=== PATIENT | female | born 1940 | race Caucasian/White ===

== ENCOUNTER 2016-04-30 13:56 | Inpatient (IN) | payer OTHER ==
[~2016-04-30] VITALS: Ht 157.4 cm; Wt 78.5 kg
[~2016-04-30 13:56] MED LIST: AUGMENTIN 875 M1 TAB PO; COLACE100 MG PO; CYCLOBENZAPRINE5 MG PO; FERROUS SULFAT325 MG PO; GUAFENESIN400 MG PO; HUMALOG100 U/ML SC; HYDROCODONE BIT1 T11 PO; MIRALAX17 GM/DOSE PO; OMEPRAZOLE40 MG PO; OXYBUTYNIN5 MG PO; SIMVASTATIN40 MG PO; SWISS KRISS1 FLA PO; TOPROL XL25 MG PO; VENTOLIN 02.5 MG/3 M INH; VITAMIN D2000 IU PO
[2016-04-30 14:00] VITALS: BP 150/66
[2016-04-30 14:59] LABS: BASO % 0.3 % (0.0-1.0); EOS # 0.1 10*3/uL (0.0-0.4); EOS % 0.6 % (1.0-4.0); HEMATOCRIT 43.5 % (37.0-47.0); HEMOGLOBIN 14.6 g/dl (12.0-16.0); IG # 0.2 10*3/uL (0.0-0.1); LYMPH # 1.3 10*3/uL (1.3-4.4); LYMPH % 8.6 % (27.0-41.0); MEAN CELL VOLUME 99.1 fl (81.0-99.0); MEAN CORPUSCULAR HGB 33.3 pg (27.0-31.0); MEAN CORPUSCULAR HGB CONC 33.6 g/dl (33.0-37.0); MEAN PLATELET VOLUME 10.3 fl (9.6-12.3); MONO # 1.3 10*3/uL (0.1-1.0); MONO % 8.4 % (3.0-9.0); NEUT # 12.4 10*3/uL (2.3-7.9); NEUT % 80.7 % (47.0-73.0); PLATELET COUNT AUTOMATED 282 10*3/uL (130-400); RED BLOOD COUNT 4.39 10*6/uL (4.10-5.10); RED CELL DISTRI WIDTH 13.2 % (0-14.5); WHITE BLOOD COUNT 15.3 10*3/uL (4.8-10.8)
[2016-04-30] MEDS ORDERED: LASIX20 MG PO (15:04)
[2016-04-30] MEDS ORDERED: ASPIRIN ADULT L81 M1 PO (15:05)
[2016-04-30] MEDS ORDERED: METFORMIN500 MG PO (15:06)
[2016-04-30 15:07] LABS: PROTHROMBIN TIME 10.3 SECONDS (9.0-12.4)
[2016-04-30] MEDS ORDERED: ALLOPURINOL100 MG PO (15:07)
[2016-04-30] MEDS ORDERED: VALSARTAN-HCTZ1 EAC1 PO (15:07)
[2016-04-30 15:17] LABS: ALBUMIN 3.2 gm/dl (3.1-4.5); ALKALINE PHOSPHATASE 77 U/L (45-117); BILIRUBIN, TOTAL 0.4 mg/dl (0.2-1.0); BUN 25 mg/dl (7-24); CARBON DIOXIDE 26 mmol/L (21-32); CHLORIDE 105 mmol/L (98-107); CPK 382 U/L (26-192); EST GLOM FILT AFRICAN AMERICAN > 60 ml/min; GLUCOSE 130 mg/dL (65-99); LDH 276 U/L (84-246); POTASSIUM 3.6 mmol/L (3.5-5.1); SGOT/AST 22 IU/L (3-35); SGPT/ALT 19 U/L (12-78); SODIUM 141 mmol/L (136-145); TOTAL PROTEIN 7.9 gm/dL (6.4-8.2)
[2016-04-30 15:20] LABS: TROPONIN I < 0.015 ng/ml (<0.045)
[2016-04-30 15:52] LABS: BILIRUBIN NEGATIVE (NEGATIVE); BLOOD TRACE-INTACT (NEGATIVE); CLARITY SL CLOUDY (CLEAR); COLOR YELLOW (YELLOW); GLUCOSE NEGATIVE (NEGATIVE); KETONE NEGATIVE (NEGATIVE); LEUKO ESTERASE NEGATIVE (NEGATIVE); NITRITE NEGATIVE (NEGATIVE); PROTEIN TRACE (NEGATIVE); SPECIFIC GRAVITY >= 1.030 (1.005-1.030); UROBILINOGEN 0.2 E.U./dl (0.2-1.0)
[2016-04-30 16:02] LABS: BACTERIA TRACE; RBC 0-2 rbc/hpf (0-2); URINE REFLEX COMMENT NO (NO); WBC 0-2 wbc/hpf (0-5)
[2016-04-30 17:19] VITALS: BP 138/70
[2016-04-30 17:43] VITALS: BP 127/68
[2016-04-30 18:38] LABS: CPK 730 U/L (26-192); TROPONIN I < 0.015 ng/ml (<0.045)
[2016-04-30 18:45] VITALS: BP 143/85
[2016-04-30 18:51] VITALS: BP 143/85
[2016-04-30 20:00] VITALS: BP 149/65
[2016-05-01] VITALS: BP 149/66
[2016-05-01 00:39] LABS: CPK 867 U/L (26-192)
[2016-05-01 00:40] LABS: TROPONIN I < 0.015 ng/ml (<0.045)
[2016-05-01 05:58] LABS: CPK 852 U/L (26-192)
[2016-05-01 06:06] LABS: TROPONIN I < 0.015 ng/ml (<0.045)
[2016-05-01 06:15] LABS: ALKALINE PHOSPHATASE 62 U/L (45-117); BILIRUBIN, TOTAL 0.4 mg/dl (0.2-1.0); CHLORIDE 106 mmol/L (98-107); FREE T4 1.07 ng/dl (0.76-1.46); HDL CHOLESTEROL 53 mg/dl (40-60); POTASSIUM 3.7 mmol/L (3.5-5.1); SODIUM 143 mmol/L (136-145); TOTAL PROTEIN 6.4 gm/dL (6.4-8.2)
[2016-05-01 06:23] LABS: ALBUMIN 2.7 gm/dl (3.1-4.5); BUN 19 mg/dl (7-24); CARBON DIOXIDE 26 mmol/L (21-32); CHOLESTEROL 137 mg/dL (<200); EST GLOM FILT AFRICAN AMERICAN > 60 ml/min; GLUCOSE 110 mg/dL (65-99); LDL CHOLESTEROL 59 mg/dL (9-159); MAGNESIUM 2.1 mg/dL (1.5-2.1); PHOSPHOROUS 3.8 mg/dL (2.5-4.9); SGOT/AST 32 IU/L (3-35); SGPT/ALT 18 U/L (12-78); TRIGLYCERIDES 123 mg/dl (<150); VLDL CHOLESTEROL 25 mg/dL (6-40)
[2016-05-01 06:44] LABS: HEMOGLOBIN A1c 6.1 % (4.8-5.6)
[2016-05-01 06:48] LABS: BASO # 0.1 10*3/uL (0.0-0.1); BASO % 0.5 % (0.0-1.0); EOS # 0.2 10*3/uL (0.0-0.4); EOS % 1.6 % (1.0-4.0); HEMATOCRIT 37.6 % (37.0-47.0); IG # 0.1 10*3/uL (0.0-0.1); LYMPH # 1.8 10*3/uL (1.3-4.4); LYMPH % 19.1 % (27.0-41.0); MEAN CELL VOLUME 101.3 fl (81.0-99.0); MEAN CORPUSCULAR HGB 33.7 pg (27.0-31.0); MEAN CORPUSCULAR HGB CONC 33.2 g/dl (33.0-37.0); MEAN PLATELET VOLUME 10.2 fl (9.6-12.3); MONO % 11.2 % (3.0-9.0); NEUT # 6.2 10*3/uL (2.3-7.9); NEUT % 66.6 % (47.0-73.0); PLATELET COUNT AUTOMATED 249 10*3/uL (130-400); RED BLOOD COUNT 3.71 10*6/uL (4.10-5.10); RED CELL DISTRI WIDTH 13.2 % (0-14.5); WHITE BLOOD COUNT 9.3 10*3/uL (4.8-10.8)
[2016-05-01 06:50] LABS: HEMOGLOBIN 12.5 g/dl (12.0-16.0)
[2016-05-01 07:09] LABS: PROTHROMBIN TIME 10.4 SECONDS (9.0-12.4)
[2016-05-01 07:12] LABS: VITAMIN D, 25-HYDROXY 31.9 ng/mL (30-100)
[2016-05-01 07:13] LABS: FOLIC ACID > 24.00 ng/mL (>5.38)
[2016-05-01 08:00] VITALS: BP 120/56
[2016-05-01 12:00] VITALS: BP 120/56; BP 143/54
[2016-05-01 16:00] VITALS: BP 133/80
[2016-05-01 20:00] VITALS: BP 143/71
[2016-05-02] VITALS: BP 148/64
[2016-05-02 06:07] LABS: BASO % 0.5 % (0.0-1.0); EOS # 0.1 10*3/uL (0.0-0.4); EOS % 1.2 % (1.0-4.0); HEMATOCRIT 36.9 % (37.0-47.0); HEMOGLOBIN 12.4 g/dl (12.0-16.0); IG # 0.1 10*3/uL (0.0-0.1); LYMPH # 1.7 10*3/uL (1.3-4.4); LYMPH % 20.2 % (27.0-41.0); MEAN CELL VOLUME 101.7 fl (81.0-99.0); MEAN CORPUSCULAR HGB 34.2 pg (27.0-31.0); MEAN CORPUSCULAR HGB CONC 33.6 g/dl (33.0-37.0); MEAN PLATELET VOLUME 9.8 fl (9.6-12.3); MONO # 0.9 10*3/uL (0.1-1.0); MONO % 10.1 % (3.0-9.0); NEUT # 5.7 10*3/uL (2.3-7.9); NEUT % 67.1 % (47.0-73.0); PLATELET COUNT AUTOMATED 258 10*3/uL (130-400); RED BLOOD COUNT 3.63 10*6/uL (4.10-5.10); RED CELL DISTRI WIDTH 13.1 % (0-14.5); WHITE BLOOD COUNT 8.5 10*3/uL (4.8-10.8)
[2016-05-02 06:31] LABS: ALBUMIN 2.6 gm/dl (3.1-4.5); BUN 15 mg/dl (7-24); CARBON DIOXIDE 25 mmol/L (21-32); CHLORIDE 108 mmol/L (98-107); GLUCOSE 86 mg/dL (65-99); MAGNESIUM 2.2 mg/dL (1.5-2.1); POTASSIUM 3.7 mmol/L (3.5-5.1); SODIUM 143 mmol/L (136-145)
[2016-05-02 06:37] LABS: ALKALINE PHOSPHATASE 62 U/L (45-117); BILIRUBIN, TOTAL 0.3 mg/dl (0.2-1.0); CPK 529 U/L (26-192); EST GLOM FILT AFRICAN AMERICAN > 60 ml/min; PHOSPHOROUS 2.9 mg/dL (2.5-4.9); SGOT/AST 28 IU/L (3-35); SGPT/ALT 19 U/L (12-78); TOTAL PROTEIN 6.5 gm/dL (6.4-8.2)
[2016-05-02 08:00] VITALS: BP 150/68
[2016-05-02 12:00] VITALS: BP 140/80
[2016-05-02 16:00] VITALS: BP 128/71
[2016-05-02 20:00] VITALS: BP 144/53
[2016-05-03] VITALS: BP 151/82
[2016-05-03 06:44] LABS: BASO % 0.4 % (0.0-1.0); EOS # 0.1 10*3/uL (0.0-0.4); EOS % 1.7 % (1.0-4.0); HEMATOCRIT 35.2 % (37.0-47.0); HEMOGLOBIN 11.4 g/dl (12.0-16.0); IG # 0.2 10*3/uL (0.0-0.1); LYMPH # 1.8 10*3/uL (1.3-4.4); LYMPH % 22.7 % (27.0-41.0); MEAN CELL VOLUME 101.7 fl (81.0-99.0); MEAN CORPUSCULAR HGB 32.9 pg (27.0-31.0); MEAN CORPUSCULAR HGB CONC 32.4 g/dl (33.0-37.0); MEAN PLATELET VOLUME 9.8 fl (9.6-12.3); MONO # 0.7 10*3/uL (0.1-1.0); MONO % 9.1 % (3.0-9.0); NEUT % 64.2 % (47.0-73.0); PLATELET COUNT AUTOMATED 256 10*3/uL (130-400); RED BLOOD COUNT 3.46 10*6/uL (4.10-5.10); RED CELL DISTRI WIDTH 13.1 % (0-14.5); WHITE BLOOD COUNT 7.8 10*3/uL (4.8-10.8)
[2016-05-03 06:58] LABS: EST GLOM FILT AFRICAN AMERICAN > 60 ml/min
[2016-05-03 08:00] VITALS: BP 153/82
[2016-05-03 20:00] VITALS: BP 152/74
[2016-05-04] VITALS: BP 158/70
[2016-05-04 08:28] VITALS: BP 162/78
[2016-05-04 12:00] VITALS: BP 141/74
== END 2016-05-04 14:15 | disposition other institution (70) | DRG 682 ==
LOC: ED 13:56 → EDHOLD 16:37 → 5E 16:37
PROVIDERS: Internal Medicine; Physician Assistant; Student in an Organized Health Care Education/Training Program
DX: N17.0 Acute kidney failure with tubular necrosis (principal); J96.01 Acute respiratory failure with hypoxia; J44.1 Chronic obstructive pulmonary disease with (acute) exacerbation; M62.82 Rhabdomyolysis; K86.2 Cyst of pancreas; E11.65 Type 2 diabetes mellitus with hyperglycemia; M19.90 Unspecified osteoarthritis, unspecified site; J45.909 Unspecified asthma, uncomplicated; M79.7 Fibromyalgia; G47.33 Obstructive sleep apnea (adult) (pediatric); M81.0 Age-related osteoporosis without current pathological fracture; D72.829 Elevated white blood cell count, unspecified; M54.5 Low back pain; W18.11XA Fall from or off toilet without subsequent striking against object, initial encounter; R27.0 Ataxia, unspecified; Z87.81 Personal history of (healed) traumatic fracture; Z90.710 Acquired absence of both cervix and uterus; Z83.6 Family history of other diseases of the respiratory system; Z79.82 Long term (current) use of aspirin; Z79.84 Long term (current) use of oral hypoglycemic drugs; Z79.1 Long term (current) use of non-steroidal anti-inflammatories (NSAID); Z79.899 Other long term (current) drug therapy; Y93.89 Activity, other specified; Y92.89 Other specified places as the place of occurrence of the external cause; Y99.8 Other external cause status

== ENCOUNTER 2017-12-03 20:09 | Inpatient (IN) | payer OTHER ==
[~2017-12-03] VITALS: Ht 157.5 cm; Wt 53.6 kg
--- NOTE | ~2017-12-03 | EKG ---
[place], [place] ELECTROCARDIOGRAM REPORT NAME: JOSELUIS JIMENEZ UNIT #: [id number] ROOM: 521 DOCTOR: BARBARA DRAFT REPORT BIRTHDATE: [birth year] [facility] Test Date: 2017-12-03 Test Time: 21:21:28 Pat Name: JOSELUIS JIMENEZ Department: Room: 521 Gender: F Obstetrics Gyn: SS RESP : 1940 Requested By: KETAN WAGONER Order Number: [id number] Reading MD: Patrizia Mccollum MD Measurements Intervals [place] Rate: 55 P: 17 AR: 143 QRS: -9 QRSD: 72 T: 24 QT: 462 QTc: 442 Interpretive Statements Sinus rhythm Atrial premature complex Abnormal R-wave progression, early transition Probable LVH with secondary repol abnrm Electronically Signed On 12-06-2017 12:07:43 PDT by Patrizia Mccollum MD CM:EKGRPT:ELECTROCARDIOGRAM REPORT 20 1207 KETAN WAGONER MD EPIPHANY DRAFT REPORT KETAN WAGONER MD
[~2017-12-03 20:09] MED LIST changes: +ALLOPURINOL100 MG PO; +ASPIRIN ADULT L81 M1 PO; +LASIX20 MG PO; +METFORMIN500 MG PO; +VALSARTAN-HCTZ1 EAC1 PO
[2017-12-03 20:13] VITALS: BP 126/60
[2017-12-03] MEDS ORDERED: LOSARTAN POTASS25 M1 PO (20:31)
[2017-12-03 21:09] LABS: BASO # 0.1 10*3/uL (0.0-0.1); BASO % 0.7 % (0.0-1.0); EOS # 0.3 10*3/uL (0.0-0.4); EOS % 2.2 % (1.0-4.0); HEMATOCRIT 37.5 % (37.0-47.0); HEMOGLOBIN 12.6 g/dl (12.0-16.0); LYMPH # 4.3 10*3/uL (1.3-4.4); LYMPH % 36.7 % (27.0-41.0); MEAN CELL VOLUME 103.9 fl (81.0-99.0); MEAN CORPUSCULAR HGB 34.9 pg (27.0-31.0); MEAN CORPUSCULAR HGB CONC 33.6 g/dl (33.0-37.0); MEAN PLATELET VOLUME 10.4 fl (9.6-12.3); MONO # 1.1 10*3/uL (0.1-1.0); MONO % 9.1 % (3.0-9.0); NEUT # 5.9 10*3/uL (2.3-7.9); NEUT % 50.4 % (47.0-73.0); NUCLEATED RED BLOOD CELL 0.2 % (0.0-0.0); PLATELET COUNT AUTOMATED 258 10*3/uL (130-400); RED BLOOD COUNT 3.61 10*6/uL (4.10-5.10); RED CELL DISTRI WIDTH 13.8 % (0-14.5); WHITE BLOOD COUNT 11.7 10*3/uL (4.8-10.8)
[2017-12-03 21:22] LABS: BILIRUBIN NEGATIVE (NEGATIVE); BLOOD NEGATIVE (NEGATIVE); CLARITY CLEAR (CLEAR); COLOR YELLOW (YELLOW); GLUCOSE NEGATIVE (NEGATIVE); KETONE TRACE (NEGATIVE); LEUKO ESTERASE NEGATIVE (NEGATIVE); NITRITE NEGATIVE (NEGATIVE); PH 5.5 (5.0-9.0); UROBILINOGEN 0.2 E.U./dl (0.2-1.0)
[2017-12-03 21:29] LABS: ALBUMIN 3.2 gm/dl (3.1-4.5); CREATININE 2.43 mg/dL (0.55-1.02); POTASSIUM 3.5 mmol/L (3.5-5.1); TOTAL PROTEIN 7.4 gm/dL (6.4-8.2)
[2017-12-03 21:30] LABS: TROPONIN I 0.022 ng/ml (<0.045)
[2017-12-03 21:34] LABS: RBC 0-2 rbc/hpf (0-2); WBC 0-2 wbc/hpf (0-5)
[2017-12-03 21:36] LABS: THYROID STIM HORMONE (HS) 8.57 uIU/ml (0.358-4.75)
[2017-12-03 23:04] VITALS: BP 138/60
[2017-12-03 23:31] VITALS: BP 142/55
[2017-12-04] VITALS (7 sets, daily range): BP systolic 100–147; BP diastolic 46–68
[2017-12-04 06:25] LABS: BASO # 0.1 10*3/uL (0.0-0.1); BASO % 0.8 % (0.0-1.0); EOS # 0.2 10*3/uL (0.0-0.4); EOS % 1.7 % (1.0-4.0); HEMATOCRIT 33.9 % (37.0-47.0); HEMOGLOBIN 10.9 g/dl (12.0-16.0); LYMPH # 2.7 10*3/uL (1.3-4.4); LYMPH % 29.4 % (27.0-41.0); MEAN CELL VOLUME 105.6 fl (81.0-99.0); MEAN CORPUSCULAR HGB CONC 32.2 g/dl (33.0-37.0); MEAN PLATELET VOLUME 10.7 fl (9.6-12.3); MONO # 0.9 10*3/uL (0.1-1.0); NEUT # 5.3 10*3/uL (2.3-7.9); NEUT % 56.9 % (47.0-73.0); PLATELET COUNT AUTOMATED 205 10*3/uL (130-400); RED BLOOD COUNT 3.21 10*6/uL (4.10-5.10); RED CELL DISTRI WIDTH 13.9 % (0-14.5); WHITE BLOOD COUNT 9.3 10*3/uL (4.8-10.8)
[2017-12-04 06:26] LABS: CREATININE 2.19 mg/dL (0.55-1.02); FREE T4 0.98 ng/dl (0.76-1.46); PHOSPHOROUS 4.5 mg/dL (2.5-4.9); POTASSIUM 3.2 mmol/L (3.5-5.1)
[2017-12-04 06:45] LABS: ACT PARTIAL THROMBO TIME 22.7 SECONDS (20.8-31.5)
[2017-12-04 09:22] LABS: VITAMIN D, 25-HYDROXY 46.6 ng/mL (30-100)
[2017-12-04] MEDS ORDERED: HYZAAR 50-12.51 EACH PO (13:44)
[2017-12-05] VITALS: BP 145/45
[2017-12-05 06:52] LABS: BASO # 0.1 10*3/uL (0.0-0.1); BASO % 0.6 % (0.0-1.0); EOS # 0.2 10*3/uL (0.0-0.4); EOS % 1.9 % (1.0-4.0); HEMATOCRIT 34.5 % (37.0-47.0); HEMOGLOBIN 11.1 g/dl (12.0-16.0); LYMPH # 2.2 10*3/uL (1.3-4.4); LYMPH % 27.9 % (27.0-41.0); MEAN CELL VOLUME 105.8 fl (81.0-99.0); MEAN CORPUSCULAR HGB CONC 32.2 g/dl (33.0-37.0); MEAN PLATELET VOLUME 10.6 fl (9.6-12.3); MONO # 0.7 10*3/uL (0.1-1.0); MONO % 8.6 % (3.0-9.0); NEUT # 4.8 10*3/uL (2.3-7.9); NEUT % 59.4 % (47.0-73.0); PLATELET COUNT AUTOMATED 220 10*3/uL (130-400); RED BLOOD COUNT 3.26 10*6/uL (4.10-5.10); RED CELL DISTRI WIDTH 13.8 % (0-14.5)
[2017-12-05 07:12] LABS: CREATININE 1.32 mg/dL (0.55-1.02); POTASSIUM 4.1 mmol/L (3.5-5.1)
[2017-12-05 08:00] VITALS: BP 126/78
[2017-12-05 12:00] VITALS: BP 125/51
[2017-12-05 16:00] VITALS: BP 155/45
[2017-12-05 20:00] VITALS: BP 147/52
[2017-12-06] VITALS: BP 143/67
[2017-12-06 06:28] LABS: BASO % 0.4 % (0.0-1.0); EOS # 0.2 10*3/uL (0.0-0.4); EOS % 1.7 % (1.0-4.0); HEMATOCRIT 31.5 % (37.0-47.0); HEMOGLOBIN 10.2 g/dl (12.0-16.0); LYMPH # 2.5 10*3/uL (1.3-4.4); LYMPH % 27.8 % (27.0-41.0); MEAN CELL VOLUME 105.7 fl (81.0-99.0); MEAN CORPUSCULAR HGB 34.2 pg (27.0-31.0); MEAN CORPUSCULAR HGB CONC 32.4 g/dl (33.0-37.0); MEAN PLATELET VOLUME 10.3 fl (9.6-12.3); MONO # 0.8 10*3/uL (0.1-1.0); MONO % 8.7 % (3.0-9.0); NEUT # 5.3 10*3/uL (2.3-7.9); NEUT % 59.3 % (47.0-73.0); PLATELET COUNT AUTOMATED 198 10*3/uL (130-400); RED BLOOD COUNT 2.98 10*6/uL (4.10-5.10)
[2017-12-06 06:43] LABS: BUN 22 mg/dl (7-24); CHLORIDE 115 mmol/L (98-107); CREATININE 1.06 mg/dL (0.55-1.02); SODIUM 146 mmol/L (136-145)
[2017-12-06 12:00] VITALS: BP 158/75
[2017-12-06 16:00] VITALS: BP 145/70
[2017-12-06 20:00] VITALS: BP 152/61
[2017-12-07] VITALS: BP 140/70
[2017-12-07 06:35] LABS: HEMATOCRIT 33.3 % (37.0-47.0); HEMOGLOBIN 10.8 g/dl (12.0-16.0); MEAN CELL VOLUME 105.7 fl (81.0-99.0); MEAN CORPUSCULAR HGB 34.3 pg (27.0-31.0); MEAN CORPUSCULAR HGB CONC 32.4 g/dl (33.0-37.0); MEAN PLATELET VOLUME 10.9 fl (9.6-12.3); PLATELET COUNT AUTOMATED 213 10*3/uL (130-400); RED BLOOD COUNT 3.15 10*6/uL (4.10-5.10); RED CELL DISTRI WIDTH 14.2 % (0-14.5); WHITE BLOOD COUNT 9.6 10*3/uL (4.8-10.8)
[2017-12-07 07:05] LABS: CREATININE 1.16 mg/dL (0.55-1.02)
[2017-12-07 07:23] LABS: BASOPHILS 3 % (0-1); PLATELET SUFFICIENCY NORMAL (NORMAL); POLYCHROMASIA SLIGHT; TOTAL CELLS COUNTED 100 #CELLS
[2017-12-07 08:00] VITALS: BP 155/90
[2017-12-07 12:00] VITALS: BP 178/50
[2017-12-07 16:00] VITALS: BP 159/88
[2017-12-07 20:00] VITALS: BP 145/53
[2017-12-08] VITALS: BP 169/75
[2017-12-08 06:26] LABS: HEMATOCRIT 35.5 % (37.0-47.0); HEMOGLOBIN 11.3 g/dl (12.0-16.0); MEAN CELL VOLUME 108.2 fl (81.0-99.0); MEAN CORPUSCULAR HGB 34.5 pg (27.0-31.0); MEAN CORPUSCULAR HGB CONC 31.8 g/dl (33.0-37.0); MEAN PLATELET VOLUME 10.7 fl (9.6-12.3); NUCLEATED RED BLOOD CELL 0.3 % (0.0-0.0); PLATELET COUNT AUTOMATED 222 10*3/uL (130-400); RED BLOOD COUNT 3.28 10*6/uL (4.10-5.10); RED CELL DISTRI WIDTH 14.2 % (0-14.5); WHITE BLOOD COUNT 10.8 10*3/uL (4.8-10.8)
[2017-12-08 06:56] LABS: CREATININE 1.13 mg/dL (0.55-1.02); POTASSIUM 4.2 mmol/L (3.5-5.1)
[2017-12-08 07:13] LABS: ATYPICAL LYMPHS 2 % (0-0); BASOPHILS 1 % (0-1); PLATELET SUFFICIENCY NORMAL (NORMAL); TOTAL CELLS COUNTED 100 #CELLS
[2017-12-08 07:14] LABS: TOXIC GRANULATION SLIGHT
[2017-12-08 08:00] VITALS: BP 149/58
[2017-12-08 12:00] VITALS: BP 142/53
[2017-12-08 16:00] VITALS: BP 158/62
[2017-12-08 20:00] VITALS: BP 159/60
[2017-12-09] VITALS: BP 155/63
[2017-12-09 08:00] VITALS: BP 156/59
== END 2017-12-09 15:50 | disposition other institution (70) | DRG 682 ==
LOC: ED 20:09 → 5E 12-04 00:25 → EDHOLD 12-04 00:25 → 5E 12-04 00:42
PROVIDERS: Emergency Medicine Emergency Medical Services; Internal Medicine; Internal Medicine Nephrology
DX: N17.0 Acute kidney failure with tubular necrosis (principal); G93.41 Metabolic encephalopathy; E87.2 Acidosis; E44.0 Moderate protein-calorie malnutrition; E83.41 Hypermagnesemia; N18.3 Chronic kidney disease, stage 3 (moderate); E87.6 Hypokalemia; R55 Syncope and collapse; R53.1 Weakness; D75.89 Other specified diseases of blood and blood-forming organs; E66.09 Other obesity due to excess calories; M19.90 Unspecified osteoarthritis, unspecified site; M81.0 Age-related osteoporosis without current pathological fracture; I34.0 Nonrheumatic mitral (valve) insufficiency; J45.909 Unspecified asthma, uncomplicated; G47.33 Obstructive sleep apnea (adult) (pediatric); M79.7 Fibromyalgia; E11.65 Type 2 diabetes mellitus with hyperglycemia; I12.9 Hypertensive chronic kidney disease with stage 1 through stage 4 chronic kidney disease, or unspecified chronic kidney disease; E11.22 Type 2 diabetes mellitus with diabetic chronic kidney disease; W18.39XA Other fall on same level, initial encounter; Y93.89 Activity, other specified; Y92.89 Other specified places as the place of occurrence of the external cause; Y99.8 Other external cause status; Z91.81 History of falling; Z90.710 Acquired absence of both cervix and uterus; Z82.5 Family history of asthma and other chronic lower respiratory diseases; Z79.82 Long term (current) use of aspirin; Z79.899 Other long term (current) drug therapy; Z68.31 Body mass index [BMI] 31.0-31.9, adult

== ENCOUNTER 2018-01-09 02:19 | Emergency (ER) | payer OTHER ==
[~2018-01-09] VITALS: Ht 167.6 cm; Wt 81.6 kg
--- NOTE | ~2018-01-09 | EKG ---
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
[~2018-01-09 02:19] MED LIST changes: +HYZAAR 50-12.51 EACH PO; +LOSARTAN POTASS25 M1 PO
[2018-01-09 02:20] VITALS: BP 110/66
[2018-01-09 02:48] LABS: BASO # 0.1 10*3/uL (0.0-0.1); BASO % 0.6 % (0.0-1.0); EOS % 0.4 % (1.0-4.0); HEMATOCRIT 34.9 % (37.0-47.0); HEMOGLOBIN 11.9 g/dl (12.0-16.0); LYMPH # 3.2 10*3/uL (1.3-4.4); LYMPH % 28.3 % (27.0-41.0); MEAN CELL VOLUME 103.6 fl (81.0-99.0); MEAN CORPUSCULAR HGB 35.3 pg (27.0-31.0); MEAN CORPUSCULAR HGB CONC 34.1 g/dl (33.0-37.0); MEAN PLATELET VOLUME 10.3 fl (9.6-12.3); MONO # 1.2 10*3/uL (0.1-1.0); MONO % 10.4 % (3.0-9.0); NEUT # 6.6 10*3/uL (2.3-7.9); NEUT % 58.7 % (47.0-73.0); PLATELET COUNT AUTOMATED 259 10*3/uL (130-400); RED BLOOD COUNT 3.37 10*6/uL (4.10-5.10); RED CELL DISTRI WIDTH 14.3 % (0-14.5); WHITE BLOOD COUNT 11.3 10*3/uL (4.8-10.8)
[2018-01-09 03:07] LABS: ALBUMIN 3.3 gm/dl (3.1-4.5); CREATININE 2.88 mg/dL (0.55-1.02); POTASSIUM 3.7 mmol/L (3.5-5.1); TOTAL PROTEIN 7.2 gm/dL (6.4-8.2)
[2018-01-09 04:03] VITALS: BP 115/70
[2018-01-09] MEDS ORDERED: GLUCOTROL10 MG PO (04:31)
[2018-01-09] MEDS ORDERED: ELIQUIS5 M1 PO (04:32)
[2018-01-09] MEDS ORDERED: PROPAFENONE HC150 MG PO (04:32)
[2018-01-09] MEDS ORDERED: TOPROL XL25 MG PO (04:33)
[2018-01-09] MEDS ORDERED: LIPITOR40 MG PO (04:33)
== END 2018-01-09 05:13 | disposition home or self-care (01) ==
LOC: ED 02:19 → EDHOLD 04:03 → ED 04:03
PROVIDERS: Student in an Organized Health Care Education/Training Program
DX: K92.1 Melena (principal); R53.1 Weakness; R14.0 Abdominal distension (gaseous); R26.2 Difficulty in walking, not elsewhere classified; I12.9 Hypertensive chronic kidney disease with stage 1 through stage 4 chronic kidney disease, or unspecified chronic kidney disease; E11.22 Type 2 diabetes mellitus with diabetic chronic kidney disease; N18.3 Chronic kidney disease, stage 3 (moderate); E66.9 Obesity, unspecified; M81.0 Age-related osteoporosis without current pathological fracture; M19.90 Unspecified osteoarthritis, unspecified site; J45.909 Unspecified asthma, uncomplicated

== ENCOUNTER 2018-03-14 14:03 | Inpatient (IN) | payer OTHER ==
[2018-03-14] VITALS (10 sets, daily range): BP systolic 100–208; BP diastolic 48–176
[~2018-03-14] VITALS: Ht 160 cm; Wt 75.0 kg
--- NOTE | ~2018-03-14 | PR ---
[place], [place] PROGRESS NOTE [id number] UNIT #: [id number] ROOM: 422 DOCTOR: RON SANCHEZ MD BIRTHDATE: [birth year] DOS: 03/21/2018 CARDIOLOGY PROGRESS NOTE SUBJECTIVE: The patient was seen at her bedside today for followup of her atrial fibrillation with rapid ventricular response. This is a newly diagnosed problem. She is currently on metoprolol, digoxin, and diltiazem, and her rate is improving, although it is still not ideally controlled. The patient appears quite confused and is moaning in bed. She states that nothing is hurting and that she is hungry. OBJECTIVE: VITAL SIGNS: Today, her heart rate is about 100 and regular, blood pressure is 142/78. She is afebrile. NECK: Supple. She has no jugular distention. CHEST: Has decreased breath sounds at the bases. HEART: Has an irregularly irregular rhythm. EXTREMITIES: Showed no edema. IMPRESSION: 1. Newly documented atrial fibrillation with rapid ventricular response. 2. Essential hypertension. 3. Type 2 diabetes mellitus. 4. Obesity. 5. Obstructive sleep apnea. 6. CHADS2-VASc score of 5, indicating high risk for cardioembolic events if the patient is not anticoagulated. 7. Encephalopathy, possibly metabolic in origin, possibly due to the hospital induced psychosis. PLAN: We will increase oral diltiazem and continue to observe her heart rate. I thank the hospitalist physicians for asking our advice regarding her care. [place], [place] PROGRESS NOTE NAME: JOSELUIS JIMENEZ UNIT #: [id number] ROOM: 422 DOCTOR: RON SANCHEZ MD BIRTHDATE: [birth year] RON SANCHEZ MD CM:PNTRANS [phone] RON SANCHEZ MD 03/24/18 1102 interface
--- NOTE | ~2018-03-14 | PR ---
[place], [place] PROGRESS NOTE NAME: JAMMIE JIMENEZA Radames UNIT #: [id number] ROOM: 412 DOCTOR: RON SANCHEZ MD BIRTHDATE: [birth year] DOS: 03/19/2018 CARDIOLOGY PROGRESS NOTE SUBJECTIVE: The patient was seen at her bedside today 03/19/2018. She is lying flat and breathing easily. We are seeing her today for followup of her newly documented atrial fibrillation. Her heart rate remains fairly rapid despite metoprolol and digoxin. She is tolerating anticoagulation. PHYSICAL EXAMINATION: VITAL SIGNS: Her pulse is 110 and irregularly irregular, blood pressure is 147/93. She is afebrile. NECK: Supple. She has no jugular distention. Carotids are full. LUNGS: Respirations are unlabored. Chest is clear. HEART: Has an irregularly irregular rhythm. ABDOMEN: Benign. EXTREMITIES: Showed no edema. LABORATORY DATA: Hemoglobin is 13.2, white count 9400, platelet count 266,000. Sodium 145, potassium 4.3, BUN 23, creatinine 1.22. Her most recent digoxin level was 1.15 two days ago. IMPRESSION: 1. Newly documented atrial fibrillation with rapid ventricular response. 2. Essential hypertension. 3. Type 2 diabetes mellitus. 4. Obesity. 5. Sedentary lifestyle. 6. Obstructive sleep apnea. 7. CHADS-VASc score of 5, indicating a high risk of cardioembolic events if the patient is not anticoagulated. PLAN: I will add oral diltiazem to her regimen. We will continue to anticoagulate her. We will continue to follow her with her primary physician. I thank the hospitalist doctors for asking our advice regarding her care. [place], [place] PROGRESS NOTE NAME: WHITNEYMERLINJOSELUIS UNIT #: [id number] ROOM: 412 DOCTOR: RON SANCHEZ MD BIRTHDATE: [birth year] RON SANCHEZ MD CM:PNTRANS [phone] RON SANCHEZ MD 03/21/18 1049 interface
--- NOTE | ~2018-03-14 | PR ---
[place], [place] PROGRESS NOTE NAME: JOSELUIS JIMENEZ UNIT #: [id number] ROOM: 422 DOCTOR: ROSEANNE CANCHOLA MD BIRTHDATE: [birth year] DOS: 03/23/2018 CARDIOLOGY FOLLOWUP VISIT NOTE REASON FOR VISIT: Atrial fibrillation. SUBJECTIVE: The patient is sleeping, arousable, but mostly noncommunicative and not answering the questions, but no acute distress. REVIEW OF SYSTEMS: Review of the 8 systems negative due to the patient not responding to any questions. PHYSICAL EXAMINATION: RHYTHM STRIPS: The patient is in atrial fibrillation with occasional rates in to 100-110 range. VITAL SIGNS: Blood pressure 140/66, pulse 75, respiratory rate is 20. GENERAL: The patient was sleeping, arousable, no acute distress. NECK: Supple, no distended neck veins, no carotid bruit. CHEST: Symmetrical, nontender. LUNGS: Few scattered rhonchi, but fair air entry bilaterally. HEART: Irregularly irregular. Grade 1/6 systolic murmur. ABDOMEN: Obese, nontender. Bowel sounds normal. EXTREMITIES: Showed trace edema. Distal pulses palpable. SKIN: Warm and dry. No cyanosis, no clubbing. RECTAL: Deferred. GENITOURINARY: Deferred. MEDICATIONS, ALLERGIES AND LABS: Reviewed. IMPRESSION: 1. Atrial fibrillation. 2. Hypertension. 3. Diabetes type 2. 4. Chronic kidney disease. 5. Anemia. 6. Obstructive sleep apnea. RECOMMENDATIONS: 1. Her blood pressure and heart rate are stable. 2. She will continue her Cardizem and metoprolol. 3. If required, add low dose digoxin 0.125 every other day for rate control. 4. Monitor her blood pressure, heart rates, renal function and hemoglobin. 5. No family at bedside at the time of examination. [place], [place] PROGRESS NOTE NAME: TONYJOSELUIS [place]rum UNIT #: [id number] ROOM: 422 DOCTOR: ROSEANNE CANCHOLA MD BIRTHDATE: [birth year] ROSEANNE CANCHOLA MD CM:PNTRANS [phone] ROSEANNE CANCHOLA MD 03/24/18 0855 interface
--- NOTE | ~2018-03-14 | EKG ---
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
--- NOTE | ~2018-03-14 | PR ---
[place], [place] PROGRESS NOTE NAME: JOSELUIS JIMENEZ UNIT #: [id number] ROOM: [facility] DOCTOR: RON SANCHEZ MD BIRTHDATE: [birth year] DOS: 03/15/2018 CARDIOLOGY PROGRESS NOTE SUBJECTIVE: The patient was seen at her bedside in the intensive care unit today 03/15/2018 for followup of her newly documented atrial fibrillation with rapid ventricular response. She was placed on metoprolol and oral digoxin this morning. Her rate has slowed and she was weaned off of diltiazem successfully. She feels well currently, but she does complain of total body aches, which she has had in the past from her fibromyalgia. PHYSICAL EXAMINATION: VITAL SIGNS: Today, her pulse is 87 and irregularly irregular. Blood pressure is 130/69. She is afebrile. NECK: Supple. She has no jugular distention. Carotids are full. I heard no bruits. She had no neck or supraclavicular masses. LUNGS: Respirations were unlabored. Her chest has decreased breath sounds at the bases, but I did not hear any wheezes or rales. HEART: Had an irregularly irregular rhythm without murmurs or gallops. ABDOMEN: Obese, but otherwise benign. EXTREMITIES: Showed no edema. IMPRESSION: 1. Newly documented atrial fibrillation with rapid ventricular response. 2. History of essential hypertension. 3. Type 2 diabetes mellitus. 4. Obesity. 5. Relatively sedentary. PLAN: We are awaiting the repeat echocardiogram, which will be done within the next 48 hours. I agree with the plans to start her on oral anticoagulation. The most recent [place] [employer] guidelines suggest that warfarin is now a second line drug for patients with nonvalvular atrial fibrillation and therefore, I would suggest that she be placed on apixaban 5 mg b.i.d. I have discussed this with the hospitalist physicians and they will probably make that change. We will continue to monitor her in the intensive care unit and I thank the hospitalist for asking our advice regarding her care. [place], [place] PROGRESS NOTE NAME: JOSELUIS JIMENEZ UNIT #: [id number] ROOM: [facility] DOCTOR: RON SANCHEZ MD BIRTHDATE: [birth year] RON SANCHEZ MD CM:PNTRANS [phone] RON SANCHEZ MD 03/16/18 0828 interface
--- NOTE | ~2018-03-14 | PR ---
[place], [place] PROGRESS NOTE NAME: JOSELUIS JIMENEZ UNIT #: [id number] ROOM: 422 DOCTOR: ROSEANNE CANCHOLA MD BIRTHDATE: [birth year] DOS: 03/24/2018 CARDIOLOGY PROGRESS NOTE REASON FOR VISIT: Atrial fibrillation and hypertension. SUBJECTIVE: The patient is alert, but patient not responding to questions, mostly noncommunicative, but no acute distress. Review of the 8 systems negative due to patient's mental status. By rhythm strip, patient in atrial fibrillation with rates around 95-105. OBJECTIVE: VITAL SIGNS: Blood pressure 150/82, pulse 70, respirations 17. Weight 74.9 kilos. GENERAL: The patient is alert, comfortable, in no acute distress. HEENT: Pupils are unable to assess since patient not opening her eyes. NECK: Supple. No distended neck veins. No carotid bruit. CHEST: Nontender to pressure. LUNGS: Few scattered rhonchi, but good air entry bilaterally. HEART: Irregularly irregular, grade 1/6 systolic murmur. ABDOMEN: Obese, nontender. Bowel sounds normal. EXTREMITIES: Showed trace edema. Distal pulses palpable. SKIN: Warm and dry. No cyanosis, no clubbing. RECTAL: Deferred. GENITOURINARY: Deferred. NEUROLOGIC: Unable to assess due to patient's overall clinical condition. MEDICATIONS AND LABORATORIES: Reviewed. IMPRESSION: 1. Atrial fibrillation. 2. Hypertension. 3. Diabetes type 2. 4. Chronic obstructive pulmonary disease. 5. Anemia. RECOMMENDATION: Continue current medications including her metoprolol and diltiazem as well as on Xarelto. There is no family at bedside. Cardiology will see as needed and patient can be discharged home. If patient develops significant tachycardia, then add digoxin 0.125 mg every other day due to chronic kidney disease. [place], [place] PROGRESS NOTE NAME: JOSELUIS JIMENEZ UNIT #: [id number] ROOM: 422 DOCTOR: ROSEANNE CANCHOLA MD BIRTHDATE: [birth year] ROSEANNE CANCHOLA MD CM:SHEILATRANS [phone] ROSEANNE CANCHOLA MD 03/24/188 interface
--- NOTE | ~2018-03-14 | PR ---
[place], [place] PROGRESS NOTE NAME: JOSELUIS JIMENEZ UNIT #: [id number] ROOM: 422 DOCTOR: ROSEANNE CANCHOLA MD BIRTHDATE: [birth year] DOS: 03/22/2018 REASON FOR VISIT: Atrial fibrillation and hypertension. HISTORY OF PRESENT ILLNESS: The patient is feeling better. Denies any chest pain or shortness of breath. No palpitation, no dizziness. The patient is wearing BiPAP. REVIEW OF SYSTEMS: As per the review of the 8 systems negative except as mentioned above. PHYSICAL EXAMINATION: VITAL SIGNS: Blood pressure 136/80, pulse 72, respiration rate 20, weight 74.9 kilos. RHYTHM STRIPS: The patient in atrial fibrillation with occasional rapid ventricular rate. GENERAL: The patient is alert and oriented, no acute distress. The patient is on BiPAP. HEENT: Pupils are round and equal. No jaundice. NECK: Supple, no distended neck veins, no carotid bruit. CHEST: Symmetrical, nontender. LUNGS: Few scattered rhonchi, but good air entry bilaterally. HEART: Irregularly irregular and grade 1/6 systolic murmur. ABDOMEN: Benign, nontender. Bowel sounds normal, obese. EXTREMITIES: Showed trace edema. Distal pulses palpable. SKIN: Warm and dry. No cyanosis, no clubbing. RECTAL: Deferred. GENITOURINARY: Deferred. MEDICATIONS AND LABORATORIES: Reviewed. IMPRESSION: 1. Atrial fibrillation, paroxysmal. 2. Hypertension. 3. Obstructive sleep apnea. 4. Diabetes type 2. 5. Chronic kidney disease. 6. Non-morbid obesity. 7. Infrarenal abdominal aortic aneurysm without rupture. RECOMMENDATIONS: Continue her current medications and continue digoxin, Cardizem, and beta-robert, continue Xarelto for anticoagulation. If the heart rate or blood pressure are high, then increase her medications. There is no family at bedside at the time of examination. Monitor heart rates, blood pressures, renal function and hemoglobin. [place], [place] PROGRESS NOTE NAME: TONYJOSELUIS Radames UNIT #: [id number] ROOM: 422 DOCTOR: ROESANNE CANCHOLA MD BIRTHDATE: [birth year] ROSEANNE CANCHOLA MD CM:PORTILLO [phone] ROSEANNE CANCHOLA MD 05/06/18 0652 interface
--- NOTE | ~2018-03-14 | EKG ---
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: Kina Ley : 1940 Requested By: MOHAMUD CHAKRABORTY Order Number: [id number] Reading MD: Hector Frederick MD Measurements Intervals [place] Rate: 167 P: [place]: QRS: 16 QRSD: 66 T: 0 QT: 293 QTc: 489 Interpretive Statements Atrial fibrillation with rapid V-rate Minimal ST depression, inferior leads Borderline T abnormalities, inferior leads Compared to ECG 01/09/2018 02:45:13 ST (T wave) deviation now present Sinus rhythm no longer present T-wave abnormality still present Electronically Signed On 03-15-2018 10:28:35 PST by Hector Frederick MD CM:EKGRPT:ELECTROCARDIOGRAM REPORT [id number] MOHAMUD JIMENEZ DRAFT REPORT MOHAMUD CHAKRABORTY M.D.
--- NOTE | ~2018-03-14 | CON ---
[place], [place] REPORT OF CONSULTATION [id number] UN[facility] #: [id number] ROOM: [facility] DOCTOR: RON SANCHEZ MD BIRTHDATE: [birth year] DOS: 03/14/2018 CARDIOLOGY CONSULTATION REASON FOR CONSULTATION: Atrial fibrillation with rapid ventricular response. HISTORY OF PRESENT ILLNESS: The patient is a 77-year-old woman who has no previously documented heart disease even though she does have a history of hypertension, obesity and diabetes. She also has sleep apnea. Reportedly, she was treated for urinary tract infection a few weeks ago. She was otherwise in her normal state of health until the last week when she began noticing that her heart was fluttering. She was seen today by visiting nurses who noted that her pulse was very fast. She was therefore brought to the Emergency Room, where she was found to be in atrial fibrillation with a very rapid ventricular response. Initially, she was hypertensive. She was started on a diltiazem drip and bolused with diltiazem twice. When this was not effective in lowering her heart rate, she was also given digoxin IV. She was then transferred to the intensive care unit for further management. The patient denies any fevers or chills. She does feel somewhat short of breath. She denies cough or hemoptysis. She has not had nausea or vomiting. PAST MEDICAL HISTORY: Includes: 1. Type 2 diabetes mellitus. 2. Morbid obesity. 3. Moderate protein-calorie malnutrition. 4. Essential hypertension. 5. Asthma. 6. Obstructive sleep apnea. 7. Chronic kidney disease. 8. Degenerative joint disease. 9. Atrial fibrillation documented 03/14/2018. 10. [id number] score of 5 consistent with a high risk for cardioembolic events if the patient is not anticoagulated. MEDICATIONS PRIOR TO ADMISSION: Allopurinol 100 mg b.i.d., atorvastatin 20 mg daily, furosemide 20 mg daily, metformin 500 mg b.i.d., metoprolol 25 mg q. 12 hours and oxybutynin 5 mg b.i.d. ALLERGIES: The patient lists no known drug allergies. FAMILY HISTORY: Unknown as the patient was adopted. REVIEW OF SYSTEMS: The patient denies diplopia or loss of vision. She does complain of fatigue and dyspnea. She is generally weak. She denies nausea or vomiting. She denies fevers, chills, sweats or recent weight change. She does admit to palpitations. She does feel weak. She denies hemoptysis or hematemesis. She states her appetite is generally good. She denies any history of blood clots. She states that she does not get around very well and is mostly sedentary. She denies change in bowel or bladder habits and denies blood in her [place], [place] REPORT OF CONSULTATION NAME: JOSELUIS JIMENEZ UNIT #: [id number] ROOM: [facility] DOCTOR: RON SANCHEZ MD BIRTHDATE: [birth year] stools or urine. She has noticed some aching in her legs and some pedal edema. Remainder of the review of systems is negative except as noted above. SOCIAL HISTORY: The patient is . She does not drink alcohol or smokes cigarettes. PHYSICAL EXAMINATION: GENERAL: The patient is an overweight white female who is awake, alert and oriented. VITAL SIGNS: Pulse is 150 and irregularly irregular. Blood pressure is 128/92. She is afebrile. She weighs 75.0 kg and has a body mass index of 29.3. HEENT: Normocephalic and atraumatic. Extraocular muscles are intact. Sclerae are clear. Pupils equal, round and react to light. The oral mucosa is moist. Tongue is midline. NECK: Supple. She has no jugular distention. Carotids are full. I heard no bruits. She had no neck or supraclavicular masses and no thyromegaly. LUNGS: Respirations are unlabored. Her chest has decreased breath sounds at the bases. She has no wheezes or rales. She has no presacral edema or chest wall tenderness. CARDIOVASCULAR: Her heart has an irregularly irregular rhythm without murmurs or gallops. The PMI is not displaced. There is no precordial heave, lift or thrill. ABDOMEN: Obese, but otherwise benign, without masses, organomegaly or bruits. EXTREMITIES: Showed trace edema of the feet. Peripheral pulses are palpable bilaterally. The patient did have an echocardiogram on 12/04/2017, which showed normal left ventricular size, wall motion and wall thickening with an ejection fraction of 65%. The right ventricle was normal in size. The left atrium appeared mildly dilated, but the right atrium was normal. The aortic valve appeared normal. There was trace mitral insufficiency, but no mitral stenosis. LABORATORY DATA: White count today is 9500, hemoglobin 12.7, platelet count 262,000. Sodium 147, potassium 3.8, chloride 113, CO2 of 26, BUN 24, creatinine 1.73, sugar 124. IMPRESSIONS: 1. Newly documented atrial fibrillation with rapid ventricular response. 2. History of essential hypertension. 3. Type 2 diabetes mellitus. 4. Obesity. 5. Relatively sedentary person. PLAN: I agree that she should be fully anticoagulated. We will treat her with intravenous diltiazem and digoxin in order to control her heart rate. She does appear to be slightly dehydrated; therefore, I agree with fluid resuscitation. We may need to add small doses of metoprolol intravenously to her regimen to better control her heart rate response to the atrial fibrillation. We will be getting an echocardiogram in the next few days and I would switch her [place], [place] REPORT OF CONSULTATION NAME: JOSELUIS JIMENEZ UNIT #: [id number] ROOM: [facility] DOCTOR: RON SANCHEZ MD BIRTHDATE: [birth year] to an oral anticoagulant once she is stabilized. We thank the hospitalist physicians for asking our advice regarding her care. RON SANCHEZ MD CM:CONSTR:REPORT OF CONSULTATION 1853 03/15/18 0746 interface
--- NOTE | ~2018-03-14 | PR ---
[place], [place] PROGRESS NOTE NAME: WHITNEYALFONSODAVEJOSELUIS Crum UNIT #: [id number] ROOM: [facility] DOCTOR: RON SANCHEZ MD BIRTHDATE: [birth year] DOS: 03/16/2018 CARDIOLOGY PROGRESS NOTE SUBJECTIVE: The patient was seen at her bedside today, 03/16/2017, for followup of her newly documented atrial fibrillation. She tells me she feels somewhat better today. She has remained off the diltiazem drip, but her heart rate is still not adequately controlled. This morning, we did increase her metoprolol from 25 mg b.i.d. to 50 mg b.i.d. She is also on digoxin with a level of 1.2. PHYSICAL EXAMINATION: VITAL SIGNS: Pulse is 110 and irregularly irregular. Blood pressure is 138/80. She is afebrile. NECK: Supple. She has no jugular distention. Carotids are full. LUNGS: Respirations are unlabored. Her chest is clear. HEART: Has an irregularly irregular rhythm. She has no murmurs, gallops. ABDOMEN: Benign. EXTREMITIES: Showed no edema. LABORATORY DATA: Hemoglobin is 12.2. CBC shows a white count of 8700, platelet count 256,000. Sodium 142, potassium 4.5, chloride 113, CO2 of 23, BUN 19, creatinine 1.36. IMPRESSION: 1. Newly documented atrial fibrillation with rapid ventricular response. 2. History of essential hypertension. 3. Type 2 diabetes mellitus. 4. Obesity. 5. Sedentary. 6. Obstructive sleep apnea. 7. [id number] score of 5, indicating a high risk for cardioembolic events if the patient is not anticoagulated. PLAN: We will continue to titrate her medications upwards to control her rate. An echocardiogram is pending and will help guide therapy. She is anticoagulated at this point with apixaban. I thank the hospitalist physicians for asking our advice regarding her care. [place], [place] PROGRESS NOTE NAME: JOSELUIS JIMENEZ UNIT #: [id number] ROOM: [facility] DOCTOR: RON SANCHEZ MD BIRTHDATE: [birth year] RON SANCHEZ MD CM:PNFROY 1435 RON SANCHEZ MD 03/17/18 0226 interface
[~2018-03-14 14:03] MED LIST changes: +ELIQUIS5 M1 PO; +GLUCOTROL10 MG PO; +LIPITOR40 MG PO; +PROPAFENONE HC150 MG PO
[2018-03-14 14:39] LABS: BASO # 0.1 10*3/uL (0.0-0.1); BASO % 0.6 % (0.0-1.0); EOS # 0.1 10*3/uL (0.0-0.4); EOS % 1.5 % (1.0-4.0); HEMATOCRIT 39.2 % (37.0-47.0); HEMOGLOBIN 12.7 g/dl (12.0-16.0); LYMPH # 2.9 10*3/uL (1.3-4.4); LYMPH % 30.3 % (27.0-41.0); MEAN CELL VOLUME 106.8 fl (81.0-99.0); MEAN CORPUSCULAR HGB 34.6 pg (27.0-31.0); MEAN CORPUSCULAR HGB CONC 32.4 g/dl (33.0-37.0); MEAN PLATELET VOLUME 10.4 fl (9.6-12.3); NEUT # 5.3 10*3/uL (2.3-7.9); NEUT % 56.2 % (47.0-73.0); NUCLEATED RED BLOOD CELL 0.4 % (0.0-0.0); PLATELET COUNT AUTOMATED 262 10*3/uL (130-400); RED BLOOD COUNT 3.67 10*6/uL (4.10-5.10); RED CELL DISTRI WIDTH 14.7 % (0-14.5); WHITE BLOOD COUNT 9.5 10*3/uL (4.8-10.8)
[2018-03-14 14:56] LABS: ALBUMIN 3.1 gm/dl (3.1-4.5); CREATININE 1.73 mg/dL (0.55-1.02); POTASSIUM 3.8 mmol/L (3.5-5.1); TOTAL PROTEIN 7.1 gm/dL (6.4-8.2); TROPONIN I 0.042 ng/ml (<0.045)
[2018-03-14] MEDS ORDERED: ALLOPURINOL100 MG PO (16:53)
[2018-03-14] MEDS ORDERED: METFORMIN HYDR500 MG PO (16:54)
[2018-03-14] MEDS ORDERED: FUROSEMIDE20 M1 PO (16:54)
[2018-03-14] MEDS ORDERED: METOPROLOL SUCC25 M2 PO (16:55)
[2018-03-14] MEDS ORDERED: OXYBUTYNIN CHLOR5 MG PO (16:55)
[2018-03-14] MEDS ORDERED: ATORVASTATIN CA20 M1 PO (16:55)
[2018-03-14 17:30] LABS: FREE T4 0.91 ng/dl (0.76-1.46)
--- NOTE | 2018-03-14 17:30 | NUR ---
A 77, admitted to ICCU, under the services of HEMALATHA Alexandre DO with a diagnosis of ATRIAL FIBRILLATION W/RVR. Chief complaint is SHORTNESS OF. Patient arrived via stretcher from ER. Monitor applied. Initial assessment completed. Vital signs taken and recorded. HEMALATHA ALEXANDRE DO notified of admission to the unit. Orders received. See assessment for past medical history, medications and allergies. Patient and/or family oriented to unit. [facility]U visitation policy reviewed. Clothing/patient valuable form completed. DUC JEFFERSON
[2018-03-14 17:35] LABS: THYROID STIM HORMONE (HS) 2.87 uIU/ml (0.358-4.75)
[2018-03-14 18:09] LABS: ACT PARTIAL THROMBO TIME 21.9 SECONDS (20.8-31.5)
[2018-03-14] MEDS ORDERED: COLACE100 MG PO (19:36)
[2018-03-14] MEDS ORDERED: ASPIRIN81 M1 PO (19:36)
--- NOTE | 2018-03-14 20:00 | NUR ---
PATIENT ALERT AND PLEASANT WITH PERIODS OF REPETITIVENESS AND CONFUSION. DAUGHTER EDNA FROM [place] CALLED AND IS CONCERNED SHE HAS UTI. WAITING TO OBTAIN URINE SPECIMEN.
--- NOTE | 2018-03-14 21:00 | NUR ---
PATIENT BED AND BATH COPLETED DUE TO INCONTINENCE OF URINE.
--- NOTE | 2018-03-14 23:00 | NUR ---
PATIENT YELLS HELP HELP ALOT. PATIENT INCONTINENT FOR URINE AGAIN. DR. QUINONEZ AWARE ST CATH ORDER GIVEN.
[2018-03-15] VITALS (9 sets, daily range): BP systolic 118–148; BP diastolic 58–88
--- NOTE | 2018-03-15 | NUR ---
PATIENT ST CATHED FOR 150CC URINE WHICH WAS THEN SENT TO LAB.
[2018-03-15 00:42] LABS: BILIRUBIN NEGATIVE (NEGATIVE); BLOOD TRACE-INTACT (NEGATIVE); CLARITY CLOUDY (CLEAR); COLOR YELLOW (YELLOW); GLUCOSE TRACE (NEGATIVE); KETONE NEGATIVE (NEGATIVE); LEUKO ESTERASE TRACE (NEGATIVE); NITRITE NEGATIVE (NEGATIVE); PH 5.5 (5.0-9.0); SPECIFIC GRAVITY >= 1.030 (1.005-1.030); UROBILINOGEN 0.2 E.U./dl (0.2-1.0)
[2018-03-15 00:54] LABS: RBC 0-2 rbc/hpf (0-2); YEAST 1+
--- NOTE | 2018-03-15 02:21 | NUR ---
PATIENT RESTLESS YELLING OVER AND OVER HELP. PATIENT SAYING HELP ME MATT I HAVE PAIN ALL OVER. MEDICATED WITH PRN NORCO PER ORDER.
--- NOTE | 2018-03-15 04:00 | NUR ---
LEANA HELPED. PATIENT IS SLEEPING.
[2018-03-15 06:50] LABS: ALBUMIN 2.6 gm/dl (3.1-4.5); CREATININE 1.47 mg/dL (0.55-1.02); POTASSIUM 4.1 mmol/L (3.5-5.1)
[2018-03-15 07:05] LABS: DIGOXIN 1.14 ng/ml (0.8-2.0); PHOSPHOROUS 3.8 mg/dL (2.5-4.9)
[2018-03-15 07:07] LABS: BASO # 0.1 10*3/uL (0.0-0.1); BASO % 0.7 % (0.0-1.0); EOS # 0.2 10*3/uL (0.0-0.4); EOS % 2.6 % (1.0-4.0); HEMATOCRIT 38.4 % (37.0-47.0); HEMOGLOBIN 12.3 g/dl (12.0-16.0); LYMPH # 2.2 10*3/uL (1.3-4.4); LYMPH % 26.5 % (27.0-41.0); MEAN CORPUSCULAR HGB 35.7 pg (27.0-31.0); MEAN PLATELET VOLUME 10.6 fl (9.6-12.3); MONO # 0.8 10*3/uL (0.1-1.0); MONO % 10.2 % (3.0-9.0); NEUT # 4.7 10*3/uL (2.3-7.9); NEUT % 57.9 % (47.0-73.0); PLATELET COUNT AUTOMATED 230 10*3/uL (130-400); RED BLOOD COUNT 3.45 10*6/uL (4.10-5.10); RED CELL DISTRI WIDTH 14.6 % (0-14.5); WHITE BLOOD COUNT 8.2 10*3/uL (4.8-10.8)
[2018-03-15 07:10] LABS: MEAN CELL VOLUME 111.3 fl (81.0-99.0)
--- NOTE | 2018-03-15 07:24 | NUR ---
Shift chart check completed.
[2018-03-15 07:44] LABS: ATYPICAL LYMPHS 3 % (0-0); PLATELET SUFFICIENCY NORMAL (NORMAL); TOTAL CELLS COUNTED 100 #CELLS
[2018-03-15 08:06] LABS: VITAMIN D, 25-HYDROXY 37.4 ng/mL (30-100)
--- NOTE | 2018-03-15 09:01 | NUR ---
DR SANCHEZ CALLED PER REQUEST OF DR HARRIS ABOUT METOPROLOL.
--- NOTE | 2018-03-15 09:08 | NUR ---
ORDERS FROM DR SANCHEZ REVIEWED WITH DR HARRIS. VSS.
--- NOTE | 2018-03-15 09:50 | NUR ---
METOPROLOL GIVEN PER ORDERS
--- NOTE | 2018-03-15 11:00 | NUR ---
CARDIZEM DRIP DECREASED TO 10mg/hr. RATE DROPPED TO UPPER 80'S REMAINS IRREGULAR
--- NOTE | 2018-03-15 11:30 | NUR ---
DECREASE CARDIZEM TO 5 MG/HR RATE 74 A-FIB
--- NOTE | 2018-03-15 11:35 | NUR ---
CARDIZEM DRIP DISCONTINUED HR 70 A-FIB
--- NOTE | 2018-03-15 14:28 | NUR ---
NORCO GIVEN FOR C/O PAIN - UNABLE TO RATE IT JUST SAYS "HURTS REALLY BAD"
--- NOTE | 2018-03-15 21:23 | NUR ---
MEDICATED WITH PRN NORCO PER ORDER AND REQUEST FOR LEG PAIN.
[2018-03-16] VITALS: BP 142/78
--- NOTE | 2018-03-16 01:11 | NUR ---
MEDICATED WITH PRN NORCO PER ORDER AND REQUEST. EARLIER DOSE HELPED.
[2018-03-16 04:00] VITALS: BP 134/78
[2018-03-16 05:54] LABS: CREATININE 1.36 mg/dL (0.55-1.02); POTASSIUM 4.5 mmol/L (3.5-5.1)
[2018-03-16 05:59] LABS: PHOSPHOROUS 3.3 mg/dL (2.5-4.9)
[2018-03-16 06:04] LABS: HEMATOCRIT 38.9 % (37.0-47.0); HEMOGLOBIN 12.2 g/dl (12.0-16.0); MEAN CELL VOLUME 111.1 fl (81.0-99.0); MEAN CORPUSCULAR HGB 34.9 pg (27.0-31.0); MEAN CORPUSCULAR HGB CONC 31.4 g/dl (33.0-37.0); MEAN PLATELET VOLUME 10.4 fl (9.6-12.3); NUCLEATED RED BLOOD CELL 0.2 % (0.0-0.0); PLATELET COUNT AUTOMATED 256 10*3/uL (130-400); RED CELL DISTRI WIDTH 14.6 % (0-14.5); WHITE BLOOD COUNT 8.7 10*3/uL (4.8-10.8)
[2018-03-16 06:09] LABS: DIGOXIN 1.22 ng/ml (0.8-2.0)
[2018-03-16 07:01] LABS: PLATELET SUFFICIENCY NORMAL (NORMAL); POLYCHROMASIA SLIGHT; TOTAL CELLS COUNTED 100 #CELLS
[2018-03-16 08:00] VITALS: BP 136/52
--- NOTE | 2018-03-16 08:30 | NUR ---
DR HARRIS WAS HERE AND ORDERS RECEIVED. PATIENT HAS A VERY RARE COUGH BUT IS NOT BRINGING ANYTHING UP DESPITE SHE WILL TELL YOU SHE DOES SOMETIMES BUT WHEN YOU SAY "CAN YOU SPIT IT INTO A CUP".. SHE SAYS "SPIT WHAT?" THEN YOU SAY WHAT YOU COUGH UP SHE SAYS I DON'T COUGH ANYTHING UP.
--- NOTE | 2018-03-16 09:35 | NUR ---
PATIENT EATING BREAKFAST AFTER MULTIPLE REQUEST FOR BEDPAN AND NOT DOING ANYTHING. BRIEF WAS CHANGED AT 0700 AND IS STILL DRY. FREQ RE-ORIENTATION REQUIRED. SIDE RAILS X4, BED ALARM, BED IN LOWEST POSITION DESPITE PATIENT NEVER TRIES TO GET UP AND IS FRETFUL WHEN TURNED EVEN THE SMALLEST AMOUNT TO THE SIDE. PATIENT IS A LITTLE BETTER AT HELPING STAFF TURN TODAY. BUTTOCK IS PINK/CLOSED/BLANCHABLE. HEEL RAISERS ON.
--- NOTE | 2018-03-16 11:38 | NUR ---
DR SANCHEZ CALLED ABOUT HEART RATE 108-120'S - TOPROL XL INCREASED TO 50 BID.
[2018-03-16 12:00] VITALS: BP 138/80
--- NOTE | 2018-03-16 13:51 | NUR ---
PHYSICAL THERAPY PT EVAL COMPLETED TODAY IN [facility]: FULL EVALAUTION TO FOLLOW. PT EVAL IS MODERATE COMPLEXITY BASED ON CHART REVIEW,TEST RESULTS AND EVALUATION: [id number]. RECOMMEND PT WHILE HERE TO ADDRESS DECREASED STRENGTH, ENDURANCE AND FUNCTIONAL MOBILTIY AND RECOMMEND SNF ON D/C TO REGAIN MAX LEVEL OF FUNCTION. THANK YOU FOR REFERRAL LANCE [facility] PT
[2018-03-16 16:00] VITALS: BP 136/70
--- NOTE | 2018-03-16 18:00 | NUR ---
DULCOLAX SUPPOSITORY WAS GIVEN AT 1730. SMALL HARD BALL WAS EFEFCT SO FAR BUT PATIENT IS HAVING PRESSURE AND EXPLAINED THAT OT MAY BE HARD SHE HAS NOT GONE IN A FEW DAYS. COMPLETE BATH IN PROCESS. NORCO GIVEN FOR PAIN.
--- NOTE | 2018-03-16 18:56 | NUR ---
FLEETS ENEMA GIVEN FOR C/O CONSTIPATION AFTER NO EFFECT FROM DULCOLAX SUPPOSITORY
--- NOTE | 2018-03-16 19:55 | NUR ---
SMALL EFFECT FROM FLEET ENEMA
[2018-03-16 20:00] VITALS: BP 150/80
--- NOTE | 2018-03-16 21:52 | NUR ---
INCONTINENT OF BLACK LIQ WITH 1 SM BALL FORMED STOOL. PER DAUGHTER EARLIER THE HAD TOLD HER THAT SHE HAD BEEN HAVING BLACK TARRY SSTOOL AT HOME - SENT FOR FOBI.
--- NOTE | 2018-03-16 23:31 | NUR ---
PT. GIVEN NORCO ORDERED AT 2306, CURRENTLY SLEEPING WITH NO PAIN, NORCO EFFECTIVE. HOMER SEYMOUR RN
[2018-03-17] VITALS: BP 160/92
[2018-03-17 04:00] VITALS: BP 132/68
[2018-03-17 04:56] LABS: BASO # 0.1 10*3/uL (0.0-0.1); BASO % 0.5 % (0.0-1.0); EOS # 0.2 10*3/uL (0.0-0.4); EOS % 1.4 % (1.0-4.0); HEMOGLOBIN 12.5 g/dl (12.0-16.0); LYMPH # 2.5 10*3/uL (1.3-4.4); LYMPH % 23.2 % (27.0-41.0); MEAN CORPUSCULAR HGB 34.5 pg (27.0-31.0); MEAN CORPUSCULAR HGB CONC 32.1 g/dl (33.0-37.0); MEAN PLATELET VOLUME 10.4 fl (9.6-12.3); MONO # 0.9 10*3/uL (0.1-1.0); MONO % 8.7 % (3.0-9.0); NEUT % 64.2 % (47.0-73.0); NUCLEATED RED BLOOD CELL 0.4 % (0.0-0.0); PLATELET COUNT AUTOMATED 254 10*3/uL (130-400); RED BLOOD COUNT 3.62 10*6/uL (4.10-5.10); RED CELL DISTRI WIDTH 14.6 % (0-14.5); WHITE BLOOD COUNT 10.9 10*3/uL (4.8-10.8)
[2018-03-17 05:06] LABS: MEAN CELL VOLUME 107.7 fl (81.0-99.0)
[2018-03-17 05:19] LABS: CREATININE 1.25 mg/dL (0.55-1.02); POTASSIUM 4.3 mmol/L (3.5-5.1)
[2018-03-17 05:29] LABS: DIGOXIN 1.15 ng/ml (0.8-2.0)
[2018-03-17 08:00] VITALS: BP 112/49
--- NOTE | 2018-03-17 09:00 | NUR ---
Completions Manager in to talk to patient. Patient states lives at home with her . There are 3 steps in the home. Physician: Dr. Nolan Chadwick [facility]: [facility] services currently Patient's level of ADLs: MINIMAL ASSIST Patient has working utilities: yes DME: c-pap, nebulizer, walker, cane Follow-up physician's appointment after d/c: will be made by the hospitalist nurse director upon discharge Does patient want to access PORTAL?: no Discharge plan discussed with patient. She lives at home with her . She is independent in her ADLs and ambulates with either a walker or a cane. Discussed home health care services and she currently has [facility] services and would like to resume those services upon discharge. When medically stable she will be discharged to home with the resumption of her [facility] services. URIEL VILLEGAS
--- NOTE | 2018-03-17 10:45 | NUR ---
FRIED CAKE MAKER DR BHAKTA IN TO SEE PT AND AWARE OF PT'S HEART RATE REMAINS 100-120'S WITH ATRIAL FIB.
[2018-03-17 12:00] VITALS: BP 150/90
--- NOTE | 2018-03-17 13:46 | NUR ---
PHYSICAL THERAPY TIME: 9:58 AM Patient presented to therapy in supine with 2 liters of spO2 via nasal canula, pulse at 119 and O2 SAT at 98% prior to therapy session. Patient agrees to therapy session. Patient was identified by name and . Patient performed supine to sitting at EOB transfer with MOD A X 1. Patient sat at EOB with CGA. Patient performed STS transfer with MIN A X 1 to W/W. Patient transferred with W/W and MIN A X 1 to bedside chair with verbal cues for putting hands back on armrests of chair. Patient sat in bedside chair and performed bilateral LE ther ex x 15 reps each in all planes of movement for strengthening in order to improve patient's functional mobility. Patient O2 SAT was recorded as 99% and pulse at 127. Patient was left in sitting position with call light within reach, O2 connected ot wall outlet with 2 liters of spO2, and LEs lowered. Patient's RN nurse stated that the patient does not need ot have a chair alarm attached. Patient was 1:1 with this TECHNICAL MANAGER CHEMICAL PLANT for 23 minutes total. GILSON WINTER TECHNICAL MANAGER CHEMICAL PLANT
[2018-03-17 16:00] VITALS: BP 156/90
[2018-03-17 20:00] VITALS: BP 154/86
--- NOTE | 2018-03-17 20:00 | NUR ---
ASSUMED CARE OF PATIENT. ASSESSMENT COMPLETE. RESTING IN BED. BED ALARM ON. CALL LIGHT IN REACH
[2018-03-18] VITALS: BP 147/95
[2018-03-18 06:39] LABS: CREATININE 1.22 mg/dL (0.55-1.02); POTASSIUM 4.1 mmol/L (3.5-5.1)
[2018-03-18 06:43] LABS: HEMATOCRIT 36.1 % (37.0-47.0); HEMOGLOBIN 11.3 g/dl (12.0-16.0); MEAN CELL VOLUME 108.4 fl (81.0-99.0); MEAN CORPUSCULAR HGB 33.9 pg (27.0-31.0); MEAN CORPUSCULAR HGB CONC 31.3 g/dl (33.0-37.0); MEAN PLATELET VOLUME 10.4 fl (9.6-12.3); PLATELET COUNT AUTOMATED 249 10*3/uL (130-400); RED BLOOD COUNT 3.33 10*6/uL (4.10-5.10); RED CELL DISTRI WIDTH 14.7 % (0-14.5)
[2018-03-18 07:18] LABS: TOTAL CELLS COUNTED 100 #CELLS
[2018-03-18 07:19] LABS: BURR CELLS FEW; PLATELET SUFFICIENCY NORMAL (NORMAL)
[2018-03-18 08:00] VITALS: BP 146/88
--- NOTE | 2018-03-18 09:00 | NUR ---
Welding Machine Operator in to see patient. Discussed short term SNF and she is agreeable. She would like her and her to go to the same SNF. c4 planner notified.
--- NOTE | 2018-03-18 10:45 | NUR ---
PHYSICAL THERAPY Patient seen this am 1:1 for therapy visit and was supine in bed upon therapist arrival. Patient presents with continuous O2-2L via NC and voices increased generalized, global weakness. Patient transfers supine to sit Mod A and sit to stand Min A, tolerating < 30 seconds static stand with CGA. Patient completed SPT to bedside chair, GEOCHEMISTRY TEACHER/Min, demonstrating increased difficulty with safe step sequence. Patient remained in chair with call light, tray table and body alarm. Will continue per POC as tolerated, total treatment time 13 minute. Castro Lee, LINUX SYSTEMS ANALYST
--- NOTE | 2018-03-18 10:46 | NUR ---
Patient referral faxed to [facility]. Waiting on review/acceptance. Will require precert
--- NOTE | 2018-03-18 11:04 | NUR ---
Occupational Therapy evaluation completed on 4 with full eval to follow. Precautions include fall risk;personal alarm,bed alarm,IV UE, O2 dep,acute debility. Patient is high complexity level 98729 via chart review, testing and evaluation. Recommend OT per POC and SNF upon d/c to enable safe return home w/ . Thank you for this referral. Elena Garcia OTR/l
[2018-03-18 12:00] VITALS: BP 155/59
[2018-03-18 16:00] VITALS: BP 147/77
--- NOTE | 2018-03-18 19:57 | NUR ---
PATIENT IS RESTING IN BED WITH EASY AND REGULAR RESPERS ON 2L VIA NC. ASSESSMENT IS COMPLETE WITH NO C/O OR S/S OF DISTRESS NOTED AT THIS TIME. BED IS LOW, LOCKED, ALARMED, AND CALL LIGHT IS WITHIN REACH. SEE SHIFT ASSESSMENT.
[2018-03-18 20:00] VITALS: BP 126/87
[2018-03-19] VITALS: BP 118/64
--- NOTE | 2018-03-19 00:16 | NUR ---
PRN NORCO GIVEN FOR GENERALZIED DISCOMFORT. PATIENT TOLERATED WELL, CALL LIGHT IS WITHIN REACH.
--- NOTE | 2018-03-19 01:25 | NUR ---
24 HR chart check completed.
[2018-03-19 06:04] LABS: BASO # 0.1 10*3/uL (0.0-0.1); BASO % 0.9 % (0.0-1.0); EOS % 0.2 % (1.0-4.0); HEMATOCRIT 41.9 % (37.0-47.0); HEMOGLOBIN 13.2 g/dl (12.0-16.0); LYMPH # 1.2 10*3/uL (1.3-4.4); LYMPH % 13.1 % (27.0-41.0); MEAN CELL VOLUME 106.9 fl (81.0-99.0); MEAN CORPUSCULAR HGB 33.7 pg (27.0-31.0); MEAN CORPUSCULAR HGB CONC 31.5 g/dl (33.0-37.0); MEAN PLATELET VOLUME 10.1 fl (9.6-12.3); MONO # 0.7 10*3/uL (0.1-1.0); MONO % 7.8 % (3.0-9.0); NEUT # 7.1 10*3/uL (2.3-7.9); NEUT % 75.6 % (47.0-73.0); NUCLEATED RED BLOOD CELL 0.3 % (0.0-0.0); PLATELET COUNT AUTOMATED 266 10*3/uL (130-400); RED BLOOD COUNT 3.92 10*6/uL (4.10-5.10); RED CELL DISTRI WIDTH 14.9 % (0-14.5); WHITE BLOOD COUNT 9.4 10*3/uL (4.8-10.8)
[2018-03-19 06:25] LABS: CREATININE 1.22 mg/dL (0.55-1.02); POTASSIUM 4.3 mmol/L (3.5-5.1)
--- NOTE | 2018-03-19 07:35 | NUR ---
[facility] stated patient is already into her copay days and would have to pay 2 weeks of copay's upfront. CM notified.
[2018-03-19 08:00] VITALS: BP 122/78; BP 160/80
--- NOTE | 2018-03-19 09:00 | NUR ---
Knitted Cloth Examiner in to see patient. Discussed she is into her copay days and would need to pay 2 weeks upfront in order to go to [facility] SNF. She states she is unable to pay the upfront copay. She would like to go home with her and continue her [facility] services she had prior to being admitted.
--- NOTE | 2018-03-19 11:40 | NUR ---
OT NOTE Attempted to see pt this A.M. for OT session and upon arrival pt's heart rate was up to 140 bpm. Spoke with pt's nurse Matthias and he requested for pt to rest at this time. Continue with POC as able. RUBY Akhtar
--- NOTE | 2018-03-19 11:46 | NUR ---
PHYSICAL THERAPY Patient presented to therapy in sitting position with O2 SAT AT 95% AND PULSE AT 147. Patient's Nurse RN RENAY said she should REST AND NOT DO THERAPY TODAY. GILSON WINTER BODY FORMER
[2018-03-19 12:00] VITALS: BP 147/93
--- NOTE | 2018-03-19 14:02 | NUR ---
OT NOTE Second attempt made to see pt this P.M. for OT session and upon arrival pt's nurse Matthias reported that pt's heart rate is still 117-137 bpm and is requesting for her to continue to rest. Will check back at a later time/date. RUBINA Akhtar/Sharon
--- NOTE | 2018-03-19 14:30 | NUR ---
PHYSICAL THERAPY Patient's nurse RN RENAY ,says patient's pulse is too high and is still at between 115 and 137 on the monitor screen. NO THERAPY PROVIDED FOR THIS REASON. GILSON WINTER GLASS CRUSHER
--- NOTE | 2018-03-19 15:20 | NUR ---
Spoke to [facility] pharmacist regarding Eliquis co-pay. Patient co-pay would be $142. Hospitalist nurse director notified.
--- NOTE | 2018-03-19 17:38 | NUR ---
PATIENT WAS COMPLAINING OF SEVERE PAIN AND WAS SCREAMING AND GROANING. PATIENTS PULSE WAS ELEVATED IN THE 130'S, BP WAS ELEVATED 180/110 MANUAL, AND PATIENT WAS HAS SEVERE DIAPHORESIS.STAT EKG WAS ORDERED AND TROP PER DR. GUTIÉRREZ. THE DOCTOR ALSO ORDERED 1MG OF MORPHINE IV NOW WHICH WAS GIVEN. AT THIS TIME THE PATIENT IS ASLEEPAND HAS NO COMPLAINTS. AWAIT TROP AND EKG RESULTS.
--- NOTE | 2018-03-19 18:05 | NUR ---
SINCE MORPHINE WAS GIVEN PATIENTS BP HAS DROPPED FROM 180/110 TO 154/90. THE PATIENTS PULSE DROPPED FROM 130'S TO 90'S 100'S. DR. RUIZ WAS NOTIFIED ABOUT THE RECENT VITALS AND CRITICAL TROP WITH NO CONCERNS AT THIS TIME.
--- NOTE | 2018-03-19 19:30 | NUR ---
ASSUMED CARE OF PATIENT, PATIENT IS RESING IN BED WITH NO C/O OR S/S OF DISTRESS NOTED AT THIS TIME. BED IS LOW, LOCKED, ALARMED, AND CALL LIGHT IS WITHIN REACH. SEE SHIFT ASSESSMENT.
[2018-03-19 20:00] VITALS: BP 142/52
--- NOTE | 2018-03-19 21:03 | NUR ---
BEDISDE GLUCOSE 85.
--- NOTE | 2018-03-19 22:24 | NUR ---
2200 MEDICATIONS GIVEN AT THIS TIME WELL ONE TIME DOSE OF MAG CITRATE AND PRN NORCO FOR S/S OF GENERALIZED DISCOMFORT/PAIN. PATIENT TOLERATED WELL, CALL LIGHT IS WITHIN REACH. WILL MONITOR EFFECT.
--- NOTE | 2018-03-19 23:30 | NUR ---
PRN NORCO NOT EFFECTIVE, PATIENT CONTINUES TO YELL OUT "HELP ME". NURSING COMFORT PROVIDED BY PROVIDING PERSONAL CARE AND THAT SEEMS TO CALM PATIENT DOWN.
[2018-03-20] VITALS: BP 134/89
--- NOTE | 2018-03-20 01:23 | NUR ---
DR. CHANG CONTACTED AT THIS TIME REGARDING REQUEST FOR SOMETHING TO HELP PATIENT SLEEP THAT WAS NOT RESTORIL. SEE NEW ORDERS.
--- NOTE | 2018-03-20 02:54 | NUR ---
ONE TIME ORDER OF VISTARIL GIVEN AT THIS TIME, PATIENT TOLERATED WELL. CALL LIGHT IS WITHIN REACH WILL MONITOR EFFECT.
[2018-03-20 06:21] LABS: BASO % 0.5 % (0.0-1.0); EOS # 0.1 10*3/uL (0.0-0.4); EOS % 0.9 % (1.0-4.0); HEMATOCRIT 35.8 % (37.0-47.0); HEMOGLOBIN 11.3 g/dl (12.0-16.0); LYMPH # 1.6 10*3/uL (1.3-4.4); LYMPH % 20.5 % (27.0-41.0); MEAN CELL VOLUME 107.5 fl (81.0-99.0); MEAN CORPUSCULAR HGB 33.9 pg (27.0-31.0); MEAN CORPUSCULAR HGB CONC 31.6 g/dl (33.0-37.0); MONO # 0.8 10*3/uL (0.1-1.0); MONO % 10.4 % (3.0-9.0); NEUT % 65.6 % (47.0-73.0); NUCLEATED RED BLOOD CELL 0.4 % (0.0-0.0); PLATELET COUNT AUTOMATED 232 10*3/uL (130-400); RED BLOOD COUNT 3.33 10*6/uL (4.10-5.10); RED CELL DISTRI WIDTH 14.8 % (0-14.5); WHITE BLOOD COUNT 7.7 10*3/uL (4.8-10.8)
--- NOTE | 2018-03-20 06:46 | NUR ---
BEDSIDE GLUCOSE 104.
[2018-03-20 06:57] LABS: BUN 24 mg/dl (7-24); CHLORIDE 113 mmol/L (98-107); CREATININE 1.06 mg/dL (0.55-1.02); POTASSIUM 4.1 mmol/L (3.5-5.1); SODIUM 147 mmol/L (136-145)
[2018-03-20 08:00] VITALS: BP 138/88
--- NOTE | 2018-03-20 08:25 | NUR ---
Patient was seen 1:1 for an occupational therapy treatment this date. Patient reported pain however was unable to express location. She completed bed mobility task with max assistance and verbal instructions provided for hand placement and sequencing of steps. Patient sat EOB for 2-3 minutes with CGA provided due to being impulsive and unsteady. Worked on sitting balance for increasing independence with ADL tasks. Patient completed sit to stand transfer with mod A to chair. Patient with O2 and body alarm in place. Patient seen for 8 minutes. Patient would contiue to benefit from occupational therapy services to increase safety and independence with ADLs and funcitonal mobility. Kayy Perry OTR/L
--- NOTE | 2018-03-20 09:00 | NUR ---
Dry Cleaner in to see patient. She is sitting up in her bedside chair without distress noted. Discussed Eliquis cost of $142 and she states she is not able to pay that. When medically stable she will be discharged to home with the resumption of her [facility] services.
--- NOTE | 2018-03-20 09:15 | NUR ---
PHYSICAL THERAPY Patient seen this am 1:1 for therapy visit and was supine in bed upon therapist arrival. Patient presents with continuos O2-2L via NC and voiced increased c/o LBP, but unable to voice pain level on numerical scale. Patient transfered supine to sit EOB with MAX A, tolerating EOB static sit x several minutes and voiced only mild pain c/o. Patient performed sit to stand with MOD A x 2, completing SPT to bedside chair, demonstrating decreased upright posture and inceased difficulty with B LE advance. Patient remained in chair with call light, tray table, cell phone and body alarm for safety. Will continue per POC as tolerated, total treatment time 12 minutes. Castro Lee, CO SUPERVISOR GROUNDS AND LANDSCAPE
[2018-03-20 12:00] VITALS: BP 116/84
--- NOTE | 2018-03-20 12:30 | NUR ---
Discussed discharge planning with her , Logan, in room 526. Discussed short term SNF and the upfront copayment of 2 weeks and he states he is not able to pay that kind of money. Discussed the cost of Eliquis at $142 and he states he is not able to pay that either. He wishes to take his home with home health services. He states he bought her a lift chair and for the most part that is where she stays. She was able to get to the bathroom right around the corner from her chair with her walker. He cooks, cleans, and bathes her. When medically stable he would like for her to return home with the resumption of her [facility] services. He states he has people that can stay with her if he needs to go somewhere. Hospitalist nurse director notified.
--- NOTE | 2018-03-20 14:32 | NUR ---
NORCO GIVEN FOR C/O BACK PAIN. WILL MONITOR.
--- NOTE | 2018-03-20 15:11 | NUR ---
PRN DULCOLAX GIVEN AT THIS TIME.
[2018-03-20 16:00] VITALS: BP 146/90
[2018-03-20 20:00] VITALS: BP 150/91
[2018-03-20 21:05] VITALS: BP 137/57
[2018-03-21] VITALS: BP 135/75
--- NOTE | 2018-03-21 01:49 | NUR ---
PATIENT SCREAMING OUT. MEDICATED WITH PRN VISTARIL. WILL CHECK EFFECTIVENESS.
--- NOTE | 2018-03-21 02:44 | NUR ---
VISTARIL NOT EFFECTIVE. DR. CHANG NOTIFIED PATIENT IS YELLING, TRYING TO CLIMB OUT OF BED, AND RIPPING HER CLOTHS OFF. SEE NEW ORDERS.
--- NOTE | 2018-03-21 03:04 | NUR ---
PATIENT VERY AGIATED. MEDICATED WITH IV ATIVAN. WILL CHECK EFFECTIVENESS.
--- NOTE | 2018-03-21 04:28 | NUR ---
ATIVAN EFFECTIVE. PATIENT SLEEPING. NO SIGNS OF DISTRESS. WILL CONTINUE TO MONITOR.
[2018-03-21 06:24] LABS: CREATININE 1.34 mg/dL (0.55-1.02)
[2018-03-21 06:26] LABS: POTASSIUM 4.8 mmol/L (3.5-5.1)
--- NOTE | 2018-03-21 07:55 | NUR ---
STUDENT NURSE IN TO TAKE PATIENT VITALS. PULSE OX IN THE 70S. PATIENT REFUSING TO LEAVE NASAL CANULA ON. OXYGEN MASK PLACED ON PATIENT. 5L. PATIENT IS NOW STATING 95%. STILL ATTEMPTING TO REMOVE MASK. REFUSES TO LEAVE HEART MONTIOR AND GOWN ON ALSO. NOTIFIED RESPIRATORY AND DR. RUIZ
[2018-03-21 08:00] VITALS: BP 148/88
--- NOTE | 2018-03-21 08:00 | NUR ---
PT EXTREMLY AGITATED AND RESTELSS-RIPPING OFF 02, CLOTHING, LEADS AND ATTEMPTING TO CLIMB OUT OF BED-PT 02 SAT 78 ON 2L-INCREASED TO 5L-RAISED HOB-02 SATS NOW 95 AUDIBLE WHEEZING. RESPIRATORY TREATMENT GIVEN WITH MUCH IMPROVEMENT. VENTURI MASK PLACED ON PATIENT AT 35% WHEN PT ASKED OF SHE WAS HAVING CHEST PAIN SHE STATED YES HOWEVER SHE WAS UNABLE TO GIVE ANY DECRIPTIONS IN REGARDS TO LOCATION OR KIND OF PAIN SHE WAS EXPERIENCING. PATIENT CONFUSED "WANTS HER MOM". NOTIFIED-WILL BE UP TO SEE PT SHORTLY. CONTINUOUS NEED TO STAY WITH PT TO PREVENT PT FROM RIPPING OFF 02, LEADS, CLOTHING AND CLIMBING OUT OF BED. RONNIE JACOBSON SPNRCC RONNIE JACOBSON
--- NOTE | 2018-03-21 08:06 | NUR ---
PATIENT PLACED ON A VENTURI MASK @ 35% ON 9L. RECEIVING A BREATHING TREATMENT AT THIS TIME
--- NOTE | 2018-03-21 08:30 | NUR ---
PT RESTING QUIETLY NOW. NO AUDIBLE WHEEZING ASCULATED. LUNGS SOUND CLEAR BUT DIMINISHED BILATERALY A&P. 02 SAT 98 ON35% VENTURI MASK. RONNIE JACOBSON SPNRCC
--- NOTE | 2018-03-21 09:00 | NUR ---
Neuroscience Director Na in to see patient. No new needs or request at this time. When medically stable she will be discharged to home with [facility] services.
--- NOTE | 2018-03-21 09:05 | NUR ---
PT RESTING QUIETLY AT THIS TIME. USING ACCESORY MUSCLES TO BREATH-VENTURI MASK 35% 9L -02 98%. HOB IN HIGH FOWLERS-BED IN LOWEST POSTION, BED ALARM ON-CALL LIGHT WITHIN REACH. RONNIE JACOBSON SPGRUPOCC
--- NOTE | 2018-03-21 09:43 | NUR ---
Faxed resume [facility] order
--- NOTE | 2018-03-21 09:57 | NUR ---
PHYSICAL THERAPY Patient was sleeping at this time. Will check back later. jovita dhaliwal statistical methods professor
--- NOTE | 2018-03-21 10:01 | NUR ---
NOTIFIED RESPIRATORY OF [facility]
[2018-03-21 10:36] LABS: ABG BASE EXCESS 1.5 mmol/L (-2.0-2.0); ABG HCO3 25.2 mmol/l (22-26); ABG O2 SATURATION 96.8 % (95-97); ARTERIAL BLOOD GAS PCO2 37.1 mmHg (35-45); ARTERIAL BLOOD GAS PH 7.443 (7.35-7.45); ARTERIAL BLOOD GAS PO2 75.3 mmHg (80-90)
--- NOTE | 2018-03-21 11:30 | NUR ---
REPLACED OUTDATED IV HEP LOCK TO RIGHT WRIST-SITE ASYMPTOMATIC-PT TOLERATED WELL. BRIEF CHANGED AND REPOSTIONED FOR COMFORT. ACCESORY MUSCLES STILL BEING UTILIZED FOR BREATHING HOWEVER, 02 IS 92 ON 35% 9 L VENTURI MASK,SRIRAM HOSE APPLIED. BED IN LOWEST POSTION, BED ALARM ON, CALL LIGHT WITHIN REACH. RONNIE JACOBSON SPNRCC
[2018-03-21 11:52] VITALS: BP 142/78
--- NOTE | 2018-03-21 12:57 | NUR ---
PHYSICAL THERAPY Patient very SOB and not feeling well. Patient also is confused. Patient DECLINES treatment at 12:52 PM. GILSON WINTER CHAIN TENDER
--- NOTE | 2018-03-21 13:58 | NUR ---
OT Daily Note Pt seen for 1:1 bedside treat this date. Upon entering room, patient had removed clothing and oxygen mask and was moaning in pain. Pt rpeorted pain all over, but was unable to give numerical rating. CESPEDES assisted patient with [facility] down and provided min a for rolling side to side to adjust brief and pad. CESPEDES notified nursing that patient had removed leads and oxygen mask. CESPEDES and DANCING TEACHER provided Max A to position patient in bed. CESPEDES educated patient in regards to proper breathing techniques and importance of wearing oxygen mask with fair understanding. CESPEDES stayed with patient to provide calming techniques secondary to patient being confused and calling out for her who was not present. Upon discussion with OTR, patient would benefit from HH services upon return home to assist with functional mobility, safety awareness, transfers and ADLs. Continue with OT plan of care as established. Total treatment time: 20 mins RUBY Hancock
--- NOTE | 2018-03-21 14:00 | NUR ---
NORCO 5/325 GIVEN PER PATIENT REQUEST FOR ALL OVER PAIN.
--- NOTE | 2018-03-21 15:12 | NUR ---
PHYSICAL THERAPY Patient performed bed mobility and rolling for PCT and Nurse so they coud change patient and this CONTINUOUS IMPROVEMENT CONSULTANT assisted in assisting with MOD TO MAX A X 1 for rolling / bed mobility. RUBINA BECKMAN WAS PRESENT AND WITNESS. GILSON WINTER CONTINUOUS IMPROVEMENT CONSULTANT
[2018-03-21 16:00] VITALS: BP 158/102
--- NOTE | 2018-03-21 16:00 | NUR ---
PATIENT VERY AGGITATED. CALLING OUT AND TAKING HER OXYGEN MASK OFF CONSTANTLY. VISTARIL GIVEN.
--- NOTE | 2018-03-21 16:30 | NUR ---
PATIENT'S BLOOD PRESSURE IS 160/102 MANUALLY. PATIENT IS STILL VERY AGGITATED. SCREAMING OUT. DR RUIZ NOTIFIED. GEODON GIVEN ORDERED.
--- NOTE | 2018-03-21 17:21 | NUR ---
PATIENT RESTING COMFORTABLY. VISTARIL AND GEODON EFFECTIVE AT THIS TIME.
--- NOTE | 2018-03-21 18:23 | NUR ---
PATIENT IS TAKING OF HER MASK AND IS YELLING OUT. VERY AGGITATED. ATIVAN 1 MG GIVEN.
--- NOTE | 2018-03-21 18:43 | NUR ---
PATIENT'S ABDOMEN DISTENDED. COMPLAINING OF ABDOMINAL PAIN. DULCOLAX SUPPOSITORY GIVEN.
[2018-03-21 20:00] VITALS: BP 150/106
--- NOTE | 2018-03-21 22:11 | NUR ---
PATIENT SLEEPING. VENTURI MASK ON. CONTINOUS PULSE OX ON. STATING 98% GUNNAR CONTINUE TO MONITOR.
[2018-03-22] VITALS: BP 152/83
--- NOTE | 2018-03-22 00:42 | NUR ---
DUCOLAX SUPPOSITORY EFFECTIVE.
--- NOTE | 2018-03-22 03:02 | NUR ---
PATIENT VERY AGITATED. RIPPING HER CLOTHES, HEART MONITOR, VENTURI MASK AND IV OUT. ATTEMPTING TO CLIMB OUT OF BED. NOTIFIED DR. CHANG. 1GRAM ATIVAN ORDERED
[2018-03-22 07:22] LABS: HEMATOCRIT 37.4 % (37.0-47.0); HEMOGLOBIN 11.7 g/dl (12.0-16.0); MEAN CORPUSCULAR HGB 34.4 pg (27.0-31.0); MEAN CORPUSCULAR HGB CONC 31.3 g/dl (33.0-37.0); MEAN PLATELET VOLUME 10.1 fl (9.6-12.3); PLATELET COUNT AUTOMATED 252 10*3/uL (130-400); RED CELL DISTRI WIDTH 14.8 % (0-14.5); WHITE BLOOD COUNT 9.8 10*3/uL (4.8-10.8)
[2018-03-22 07:40] LABS: CREATININE 1.4 mg/dL (0.55-1.02); POTASSIUM 4.7 mmol/L (3.5-5.1)
[2018-03-22 07:51] LABS: DIGOXIN 1.72 ng/ml (0.8-2.0)
[2018-03-22 07:54] LABS: ATYPICAL LYMPHS 1 % (0-0); PLATELET SUFFICIENCY NORMAL (NORMAL); TOTAL CELLS COUNTED 100 #CELLS
[2018-03-22 07:55] LABS: POLYCHROMASIA SLIGHT
[2018-03-22 08:00] VITALS: BP 136/80
--- NOTE | 2018-03-22 14:06 | NUR ---
U NOTIFIED OF CONSULT.
--- NOTE | 2018-03-22 15:30 | NUR ---
ASSUMED CARE OF PT AT THIS TIME. PATIENT RESTING IN BED, MAKING GRUNTING NOISES. PATIENT PULLED UP IN BED AND REPOSITIONED FOR COMFORT AT THIS TIME. WILL MONITOR. BED LOCKED IN LOW POSITION, BED ALARM INTACT, CALL LIGHT IN REACH.
[2018-03-22 16:00] VITALS: BP 147/73
[2018-03-22 20:00] VITALS: BP 149/89; BP 167/85
--- NOTE | 2018-03-22 20:09 | NUR ---
IV ATIVAN ADMINISTERED PER PRN ORDER FOR AGITATION. PO TYLENOL ALSO ADMINISTERED PATIENT RESPONDS "YES" WHEN ASKED IF SHE IS HAVING PAIN. WILL MONITOR EFFECTIVENESS OF MEDICATIONS. CALL LIGHT IN REACH.
--- NOTE | 2018-03-22 21:20 | NUR ---
PATIENT PULLED UP IN BED, SMALL BM IN BRIEF. PT CLEANED UP, NEW BRIEF/LINENS PROVIDED. REPOSITIONED FOR COMFORT. WILL MONITOR. CALL LIGHT IN REACH. BED ALARM INTACT.
[2018-03-23] VITALS: BP 149/66
--- NOTE | 2018-03-23 01:04 | NUR ---
DR NEGRO INFORMED OF PATIENT BEHAVIOR OF GRIMACING, BALLING OF FISTS, RESTLESSNES AND WHEN ASKED IF PATIENT IS IN PAIN PATIENT STATES "YES". PATIENT HAS BEEN REPOSITIONED MULTIPLE TIMES AND WOULD NOT TAKE TYLENOL PO WHOLE OR CRUSHED IN APPLESAUCE. DR NEGRO STATED THAT HE WOULD LOOK INTO HER CHART.
--- NOTE | 2018-03-23 07:58 | NUR ---
ATIVAN EFFECTIVE. PT IN BED, SLEEPING. NO SXS OF DISTRESS. AFIB PER CM IN 80s.
--- NOTE | 2018-03-23 11:27 | NUR ---
SLEEPING, NO SXS OF DISTRESS. TALKED WITH , SAID OK TO HOLD ALL PO MEDS THIS AM AND TO MONITOR VITALS. AFIB PER CM. 2L NC INTACT. BED ALARM ON.
[2018-03-23 12:00] VITALS: BP 149/71
--- NOTE | 2018-03-23 12:03 | NUR ---
BRIAN HARO FROM [facility] IN TO SEE PT. PT WRITHING IN BED AND AGITATED. 10 MG OF GEODON ORDERED TO GIVE IM NOW. SEE MAR.
[2018-03-23 16:00] VITALS: BP 158/87
--- NOTE | 2018-03-23 18:11 | NUR ---
PT SLEEPING. VERY DROWSY WHEN WOKEN. UNABLE TO GIVE PO MEDS AT THIS TIME. SEE MAR. CALL LIGHT IN REACH. BED ALARM MAINTAINED.VSS.
--- NOTE | 2018-03-23 18:45 | NUR ---
PT CONTINUES TO SLEEP WITHOUT DISTRESS SINCE GEODON WAS GIVEN. CALL LIGHT IN REACH. IVF GOING. BED ALARM MAINTAINED.
[2018-03-23 20:00] VITALS: BP 159/82
--- NOTE | 2018-03-23 20:42 | NUR ---
RN WAS ABLE TO ADMINISTER PM MEDICATIONS TO PATIENT. PATIENT STILL DROWSY, BUT WAKES UP, OPENS EYES, FOLLOWS COMMANDS, AND SWALLOWS PILLS/PUDDING/THIN LIQUIDS WITHOUT ISSUE. SPOKE TO ABOUT PO CARDIZEM & PO XARELTO BEING HELD DURING AM SHIFT DUE TO DROWSINESS FROM [facility]. INSTRUCTED TO GIVE PO CARDIZEM & XARELTO IF PATIENT WILL TAKE THEM.
--- NOTE | 2018-03-23 21:57 | NUR ---
IV MORPHINE ADMINISTERED SLOWLY PER PRN ORDER FOR C/O PAIN "ALL OVER" AND ESPECIALLY IN "BACK." PATIENT ASKED TO RATE HOW BAD PAIN HURTS. PT REPLIES "HURTS." WILL MONITOR EFFECTIVENESS. BED LOCKED IN LOW POSITION, BED ALARM INTACT, CALL LIGHT LEFT IN REACH.
[2018-03-23 22:00] VITALS: BP 159/82
--- NOTE | 2018-03-24 02:21 | NUR ---
NOTIFIED OF HR SITTING IN 50S. PATIENT IS STILL IN AFIB AND WILL DROP DOWN TO 40S BUT RETURN BACK TO 50S. PATIENT HAD BEEN RUNNING 70S-80S AND WOULD EVEN BE TACHY IN LOW 100S IN THE PAST. NO NEW ORDERS RECEIVED.
--- NOTE | 2018-03-24 05:39 | NUR ---
PATIENT VERY AGITATED AT THIS TIME, MOANING AND GROANING & FIDGETING IN BED. PATIENT ASKED IF SHE IS IN PAIN. PATIENT REPLIES "HURTS" WITH EYES CLOSED. PATIENT IS VERY WORKED UP AND AUDIBLE WHEEZES NOTED. RESPIRATORY CALLED TO ADMINISTER BREATHING TX PER PRN ORDER. PATIENT CONTINUOUSLY PULLING OFF GOWN. GOWN LEFT OFF AND PATIENT COVERED WITH LIGHT SHEET. IV MORPHINE ALSO ADMINISTERED AT THIS TIME FOR PAIN. WILL MONITOR EFFECTIVENESS. BED LEFT LOCKED IN LOW POSITION, BED ALARM INTACT, CALL LIGHT IN REACH.
--- NOTE | 2018-03-24 06:15 | NUR ---
BSG 200. 2 UNITS ADMINISTERED PER ORDER. EARLIER MORPHINE APPEARS EFFECTIVE. PATIENT MUCH CALMER AND IS LAYING CROOKED ON BACK. ATTEMPTED TO REPOSITION PATIENT FOR COMFORT, BUT PATIENT MOANING AND SAYS "NOOO." LEFT PATIENT IN THIS POSITION FOR NOW. SIDE RAILS UP X3, BED LOCKED IN LOW POSITION, BED ALARM INTACT, CALL LIGHT IN REACH. PILLOWS PLACED BEHIND HEAD, UNDER ARM, UNDER BLE, AND AGAINST SIDE RAIL.
--- NOTE | 2018-03-24 09:10 | NUR ---
OT NOTE Pt was seen this A.M. 1:1 for 15 minute OT session. Upon arrival pt was supine in bed, pt identified by name and on wristabnd. Pt presented to therapy with continous 3L-O2 via NC which she remained on throughout entire session. Pt was moaning and mumbling in a way that she was unable to be unstood. Pt transferred supine to sit EOB with maxA X 2. While sitting EOB challenged pt's sitting balance needed for increased I and enhanced safety in sitting tasks, pt was able to maintain P+ sitting balance requiring modA due to falling forwards. Pt then completed sit to stand transfer from bed level with modA X 2, challenged pt's static standing tolerance needed for increased I in self care tasks and functional transfers and pt was able to tolerate aprox 20 seocnds at a time before sitting due to fatigue. Pt transferred back into bed sit to supine with maxA X 2 where she was left under patient attendent care. Continue with rec D/C plan to SNF. RUBINA Akhtar/Sharon
--- NOTE | 2018-03-24 09:15 | NUR ---
PHYSICAL THERAPY Patient seen this am 1:1 for therapy visit and was supine in bed upon therapist arrival. Patient presents with continuos O2-3L via NC, HR 84 bpm and was voicing sounds of increased pain. Patient was hard to understand in a "mumbling" tone and tolerated slow rise of HOB to change supine postition. Patient became more alert with her eyes open and decreaed pain. Patient transfers supine to sit EOB with MAX A x 2, tolerating static sit x several minutes, MIN A to prevent falling fwd / bkwd. Patient performed sit to stand transfer, MOD A x 2, tolerating standing ROAD MENDER/MIN, v/c upright posture and able to side step to R 3-4 steps. Patient returned to supine in bed, MAX A x 2 and reamined under patient personalized living assistant Supervision for feeding. Will continue per POC as tolerated, total treatment time 13 minutes. Castro Lee, MANAGER INTERN
[2018-03-24] MEDS ORDERED: GLUCOTROL10 M1 PO (11:13)
[2018-03-24] MEDS ORDERED: Humalog SQ (11:13)
[2018-03-24] MEDS ORDERED: FLUCONAZOLE100 MG PO (11:13)
[2018-03-24] MEDS ORDERED: MIRALAX POWDER17 G1 PO (11:13)
[2018-03-24] MEDS ORDERED: CARDIZEM CD300 MG PO (11:13)
[2018-03-24] MEDS ORDERED: XARE15TA PO (11:13)
[2018-03-24] MEDS ORDERED: Ipratropium Brom3 ML NEB (11:13)
[2018-03-24] MEDS ORDERED: GEODON20 M1 IM (11:13)
[2018-03-24] MEDS ORDERED: Lanoxin PO (11:13)
[2018-03-24 12:00] VITALS: BP 151/70
--- NOTE | 2018-03-24 15:05 | NUR ---
Discharge instructions reviewed with patient/family. Patient receptive and verbalizes understanding. Follow-up care arranged. Written instructions given to patient/family. AMALIA WILLOUGHBY
--- NOTE | 2018-03-24 15:52 | NUR ---
PHYSICAL THERAPY CO-SIGN I approve of the Phyical Therapy notes written above. NATALYA LUNA PT
--- NOTE | 2018-03-24 15:54 | NUR ---
OCCUPATIONAL THERAPY CO-SIGN I approve of the Occupational Therapy notes written above. MELINA LOZA OTR/Sharon
== END 2018-03-24 15:05 | disposition home health service (06) | DRG 308 ==
LOC: ED 14:03 → EDHOLD 16:17 → 4E 16:17 → ICCU 16:17 → EDHOLD 16:38 → ICCU 16:43 → 4E 03-17 13:07
PROVIDERS: Emergency Medicine; Internal Medicine; Internal Medicine Nephrology; ADMIT Internal Medicine
DX: I48.0 Paroxysmal atrial fibrillation (principal); N17.0 Acute kidney failure with tubular necrosis; J96.01 Acute respiratory failure with hypoxia; I16.1 Hypertensive emergency; E87.0 Hyperosmolality and hypernatremia; G93.40 Encephalopathy, unspecified; F23 Brief psychotic disorder; E86.0 Dehydration; M19.90 Unspecified osteoarthritis, unspecified site; J45.909 Unspecified asthma, uncomplicated; G47.33 Obstructive sleep apnea (adult) (pediatric); M79.7 Fibromyalgia; I12.9 Hypertensive chronic kidney disease with stage 1 through stage 4 chronic kidney disease, or unspecified chronic kidney disease; I34.0 Nonrheumatic mitral (valve) insufficiency; G89.29 Other chronic pain; M54.9 Dorsalgia, unspecified; R05 Cough; E66.01 Morbid (severe) obesity due to excess calories; E11.22 Type 2 diabetes mellitus with diabetic chronic kidney disease; E87.8 Other disorders of electrolyte and fluid balance, not elsewhere classified; I71.4 Abdominal aortic aneurysm, without rupture; J44.9 Chronic obstructive pulmonary disease, unspecified; E78.1 Pure hyperglyceridemia; R10.13 Epigastric pain; E83.41 Hypermagnesemia; D75.89 Other specified diseases of blood and blood-forming organs; K59.00 Constipation, unspecified; M81.0 Age-related osteoporosis without current pathological fracture; E11.65 Type 2 diabetes mellitus with hyperglycemia; N18.3 Chronic kidney disease, stage 3 (moderate); Z91.81 History of falling; Z90.710 Acquired absence of both cervix and uterus; Z79.82 Long term (current) use of aspirin; Z79.899 Other long term (current) drug therapy; Z68.28 Body mass index [BMI] 28.0-28.9, adult

== ENCOUNTER 2018-03-24 09:29 | Inpatient (IN) | payer OTHER ==
[~2018-03-24] VITALS: Ht 160 cm; Wt 73.5 kg
--- NOTE | ~2018-03-24 | WRIGHTHP ---
[place], [place] PATIENT HISTORY AND PHYSICAL EXAM NAME: JOSELUIS JIMENEZ UNIT #: [id number] ROOM: 316 DOCTOR: HAYDEN STEINBERG MD BIRTHDATE: [birth year] DOS: 03/25/2018 INITIAL PSYCHIATRIC EVALUATION CHIEF COMPLAINT: "Morning." SUMMARY OF THE VISIT: This is a 77-year-old white female who was initially admitted on 03/14/2018 because of abdominal pain. The patient has a lengthy history of AFib, acute respiratory failure, hyperlipidemia, hypertension, obstructive sleep apnea, obesity, fibromyalgia, and debility. The patient while on the medical floor, was found to be extremely depressed and continued to report of not feeling good. She would not attend to her ADLs. She was not sleeping well. She was not eating well and overall her level of functioning had declined. She is now admitted to rule out further organic factors in an attempt to stabilize on medication. PAST MEDICAL HISTORY: Remarkable for the illnesses mentioned above. SOCIAL HISTORY: The patient does not drink alcohol, use illicit drug or smoke cigarettes. STRENGTHS: Supportive family, good verbal skills. WEAKNESSES: Cognitive decline and poor coping skills. MENTAL STATUS: She is alert and oriented to person, place, not necessarily time. Mood does seem to be depressed with anxious overtones. Her responses tended to be short and simple for the most part, it was hard to get her to focus. There was no hypomania or katarina, and I did not elicit any gross psychotic symptoms. Memory does have gaps. DIAGNOSIS: Major depression, recurrent, severe. PLAN: I will discontinue Depakote as I do not see her as much having mood lability as I do to depression. She does have a history of fibromyalgia, so I do think Cymbalta will be a multitasker that will help with the fibromyalgia as well as the depression. We will engage her in individual and mace milieu activity, returning to the least restrictive environment when psychiatrically stable. [place], [place] PATIENT HISTORY AND PHYSICAL EXAM NAME: JOSELUIS JIMENEZ UNIT #: [id number] ROOM: 316 DOCTOR: HAYDEN STEINBERG MD BIRTHDATE: [birth year] HAYDEN STEINBERG MD CM:HISPHYS:PATIENT HISTORY AND PHYSICAL EXAMINATION [id number] HAYDEN STEINBERG MD 03/25/18 1040 interface
--- NOTE | ~2018-03-24 | PR ---
[place], [place] PROGRESS NOTE NAME[id number] UNIT #: [id number] ROOM: 316 DOCTOR: HAYDEN STEINBERG MD BIRTHDATE: [birth year] DOS: 03/30/2018 CHIEF COMPLAINT: "I feel good. Thank you for asking. The pain is actually a little better." SUMMARY OF THE VISIT: The patient was interviewed in the dining area where she was sitting by herself, watching television. She engaged readily in conversation, reporting that she did sleep a little better, but it still could improve. The pain she reports is a little less, which made her smile. She denies any medication side effects and voices a willingness and readiness to leave the hospital soon. MENTAL STATUS: She is alert and oriented with significant time gaps. Mood does seem to be trending towards euthymia. Affect is more appropriate. There is no katarina, hypomania or psychosis. Short term memory has gaps, otherwise she is intact. PLAN: I will go ahead and increase the Namenda from 5 mg a day to 5 mg twice daily as it augments the effectiveness of the Exelon patch. Engage in individual and mace milieu activity, returning then to the least restrictive environment when stable. HAYDEN STEINBERG MD CM:PNTRANS [phone] HAYDEN STEINBERG MD 03/30/18 2341 interface
--- NOTE | ~2018-03-24 | PR ---
[place], [place] PROGRESS NOTE [id number] UN[facility] #: [id number] ROOM: 316 DOCTOR: HAYDEN STEINBERG MD BIRTHDATE: [birth year] DOS: 03/26/2018 INTERVAL NOTE CHIEF COMPLAINT: "I hurt all over, I am just so depressed." SUMMARY OF THE VISIT: The patient was interviewed as she was reclining in a Lazara chair in the dining area. She did report to me immediately that she hurt all over and was very tired and worn down because of the pain. She did state she slept well, but could still think that her sleep could improve more. She did appear depressed and voiced depressive symptoms as well. She voiced no side effects regarding the medications themselves. MENTAL STATUS: She is alert and oriented with time gaps. Mood does seem to be overwhelmingly depressed. She is rather flat, blunted, and constricted. There is no hypomania or katarina. There are no overt auditory or visual hallucinations. No delusions, no paranoia. Short term memory does have gaps. PLAN: I will go ahead and increase the Cymbalta from 30 to 60 mg at bedtime, hoping to impact positively on her mood as well as improving her pain control. We will engage her in individual and mace milieu activity, returning then to the least restrictive environment. HAYDEN STEINBERG MD CM:PNTRANS [id number] HAYDEN STEINBERG MD 03/26/18 1146 interface
--- NOTE | ~2018-03-24 | PR ---
[place], [place] PROGRESS NOTE NAME[id number] UNIT #: [id number] ROOM: 316 DOCTOR: HAYDEN STEINBERG MD BIRTHDATE: [birth year] DOS: 03/28/2018 CHIEF COMPLAINT: "I still hurt all over." SUMMARY OF THE VISIT: The patient was interviewed as she was eating her breakfast. She engaged readily in conversation. She reports that she is still hurting all over and that the pain wears her down. She did eventually state that the pain perhaps is a little bit better and that she does feel like there is an improvement in how she is doing. MENTAL STATUS: She remains alert and oriented to person, place, but not time. Mood does seem to be trending towards euthymia. Affect is much more appropriate. There is no katarina, hypomania or psychosis. Short-term memory continues to have gaps, otherwise she is intact. PLAN: I will go ahead and maximize the dose of Cymbalta, bringing it to 60 mg b.i.d. We will simultaneously increase the Exelon patch to its maximum dose of 13.3 mg a day. Continue to support and monitor. Continue to engage in individual and mace milieu activity, returning to the least restrictive environment when psychiatrically stable. HAYDEN STEINBERG MD CM:PNTRANS [id number] HAYDEN STEINBERG MD 03/28/18 1449 interface
--- NOTE | ~2018-03-24 | DS ---
[place], [place] DISCHARGE SUMMARY NAME: JOSELUIS JIMENEZ [facility] #: [id number] UNIT #: [id number] ROOM: 316 DOCTOR: HAYDEN STEINBERG MD BIRTHDATE: [birth year] DOS: 03/31/2018 CHIEF COMPLAINT: "Morning." HISTORY OF PRESENT ILLNESS: This is a 77-year-old white female who was initially admitted on 03/14/2018 because of abdominal pain. The patient has a lengthy history of AFib, acute respiratory failure, hyperlipidemia, hypertension, obstructive sleep apnea, obesity, fibromyalgia, and debility. While on the medical floor, the patient became extremely depressed and despondent and continued to report she was not feeling well. She could not attend to her ADLs. She was not eating or sleeping well and she was having fleeting suicidal thoughts and just wanted to give up. She was sent to the U to further evaluate lethality to engage in individual and mace milieu activity, returning then to the least restrictive environment when psychiatrically stable. SUMMARY OF HOSPITAL COURSE: The patient was admitted to the unit where her Depakote was discontinued as I did not see her having as much mood lability as I did in depression. Because she has a history of fibromyalgia and she did complain of significant debilitating pain, I did start her on Cymbalta 30 mg at bedtime. Over the course of her stay, the Cymbalta was increased to 60 mg at bedtime, then 30 in the morning and 60 at night and ultimately to 60 mg b.i.d. with excellent results. As the Cymbalta was increased, her depression came under control and her pain lessened. Sleep and appetite normalized and her thoughts of suicide dissipated. She voiced a willingness and readiness to return back to her home. The patient convincingly denied medication side effects from the Cymbalta itself. I did notice cognitive issues with her and for this reason did start her on Exelon patch, which was increased to its maximum dose of 13.3 mg a day. This was augmented later in her stay with Namenda and it was brought up to 5 mg b.i.d. when it was time for discharge. Further titration of the Namenda can be done as an outpatient. MENTAL STATUS AT DISCHARGE: The patient is alert and oriented to person, place and very approximate to time. Mood was strongly trending towards euthymia. Affect was much more appropriate. There is no hypomania or katarina. There is no gross psychosis. Short term memory had some mild gaps. DIAGNOSES AT DISCHARGE: Major depression, recurrent, severe, and Alzheimer's dementia. DISPOSITION: Her prescriptions have been printed. She will be going to [facility]. At the time of discharge, she was medically and psychiatrically stable. [place], [place] DISCHARGE SUMMARY NAME: JOSELUIS JIMENEZ UNIT #: [id number] ROOM: 316 DOCTOR: HAYDEN STEINBERG MD BIRTHDATE: [birth year] HAYDEN STEINBERG MD CM:MARIMAR 1 [id number] HAYDEN STEINBERG MD 03/31/18 1259 interface
--- NOTE | ~2018-03-24 | CON ---
[place], [place] REPORT OF CONSULTATION NAME: JOSELUIS JIMENEZ UNIT #: [id number] ROOM: 316 DOCTOR: SUKUMAR, PHD ALEX BIRTHDATE: [birth year] DOS: 03/25/2018 The patient was too somnolent to participate in the evaluation. I will follow up with her tomorrow. Jaylyn Osman, PhD CM:CONSTR:REPORT OF CONSULTATION 1427 03/27/18 0734 interface
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
--- NOTE | ~2018-03-24 | PR ---
[place], [place] PROGRESS NOTE [id number] #: [id number] ROOM: 316 DOCTOR: HAYDEN STEINBERG MD BIRTHDATE: [birth year] DOS: 03/27/2018 CHIEF COMPLAINT: "I am still in a lot of pain." SUMMARY OF THE VISIT: The patient was interviewed as she was sitting next to her breakfast. She was more alert and engaging than she had been. She was able to converse readily with me and reports that she is in still considerable generalized body pain. She reports no medication side effects. She is willing to allow me to adjust the medicines further. MENTAL STATUS: She is alert and oriented with significant time gaps. Mood does seem to be trending towards euthymia, but is still depressed, flat and blunted. There is no katarina or hypomania. There is no gross psychosis. Short term memory continues to be very poor. PLAN: I will increase her Exelon patch from 4.6 to 9.5 mg a day while increasing her Cymbalta to 30 mg in the morning and 60 mg at bedtime. We will continue to monitor and engage in individual and mace milieu activity, returning then to the least restrictive environment when psychiatrically stable. HAYDEN STEINBERG MD CM:PNTRANS [id number] HAYDEN STEINBERG MD 03/27/18 1318 interface
--- NOTE | ~2018-03-24 | PR ---
[place], [place] PROGRESS NOTE [id number] #: [id number] ROOM: 316 DOCTOR: HAYDEN STEINBERG MD BIRTHDATE: [birth year] DOS: 03/29/2018 INTERVAL NOTE CHIEF COMPLAINT: "Thank you for breakfast. I am still hurting all over." SUMMARY OF THE VISIT: The patient was interviewed as she was sitting in the dining area, eating her breakfast. She had about 1/2 of it completed. She stopped and engaged readily in conversation. There are definitely some gaps in short term memory. Otherwise, she is fairly intact. Mood does seem to be improving, but she still is consistently complaining of generalized body aches and pains that are significant per her report. MENTAL STATUS: She is alert and oriented to person, place with some gaps in time. Mood is still depressed. Affect is still somewhat blunted and constricted. There is no hypomania or katarina. There are no overt auditory or visual hallucinations. No delusions, no paranoia. Short term memory has gaps, otherwise she is intact. PLAN: I will go ahead and augment Exelon patch now with Namenda 5 mg a day. Plan to titrate this upward as needed and as tolerated. We will engage in individual and mace milieu activity, returning to the least restrictive environment when psychiatrically stable. HAYDEN STEINBERG MD CM:PNTRANS [phone] HAYDEN STEINBERG MD 03/29/18 1730 interface
[~2018-03-24 09:29] MED LIST changes: +ASPIRIN81 M1 PO; +ATORVASTATIN CA20 M1 PO; +FUROSEMIDE20 M1 PO; +METFORMIN HYDR500 MG PO; +METOPROLOL SUCC25 M2 PO; +OXYBUTYNIN CHLOR5 MG PO
[2018-03-24] MEDS ORDERED: Ipratropium Brom3 ML NEB (11:13)
[2018-03-24] MEDS ORDERED: Lanoxin PO (11:13)
[2018-03-24] MEDS ORDERED: CARDIZEM CD300 MG PO (11:13)
[2018-03-24] MEDS ORDERED: GEODON20 M1 IM (11:13)
[2018-03-24] MEDS ORDERED: FLUCONAZOLE100 MG PO (11:13)
[2018-03-24] MEDS ORDERED: XARE15TA PO (11:13)
[2018-03-24] MEDS ORDERED: GLUCOTROL10 M1 PO (11:13)
[2018-03-24] MEDS ORDERED: Humalog SQ (11:13)
[2018-03-24] MEDS ORDERED: MIRALAX POWDER17 G1 PO (11:13)
[2018-03-24 15:13] VITALS: BP 132/72
--- NOTE | 2018-03-24 15:31 | NUR ---
PM GROUP/MEDITATION/STORY PT ADMITTED DURING END OF GROUP UNABLE TO ATTEND DUE TO ASSESMENTS AND ORIENTATION. PT WILL BE ENCOURAGED TO ATTEND FUTURE GROUP SESSIONS.
[2018-03-24 15:42] VITALS: BP 132/72
--- NOTE | 2018-03-24 15:53 | NUR ---
PHYSICAL THERAPY Nursing screen received. PT orders also received. Thank you. Diana Mata,PT
--- NOTE | 2018-03-24 16:15 | NUR ---
CALL PLACED TO HOSPITALIST CELL NUMBER 1 AT [phone], DR. BUSTILLO ANSWERED, MADE AWARE OF NEW CONSULT FOR MEDICAL MANAGEMENT. STATED TO PLACE CONSULT UNDER DR. MORILLO.
--- NOTE | 2018-03-24 16:44 | NUR ---
JOSELUIS JIMENEZ a 77 year old F admitted via wheel chair from the 4TH FLOOR as an emergency 72 hr. hold admission. Arrived on unit at 1500. ALLERGIES: NKA. Vital signs are: 97.9-83-18 132/72 SPO2 98% RA. Admitted under the services of Dr. MARYAN HAYESHAYDEN. A search was conducted and hazardous articles were removed. Client was oriented to the unit. ANN MARIE RODRIGUEZ
[2018-03-24 20:00] VITALS: BP 125/59
--- NOTE | 2018-03-24 20:38 | NUR ---
RESPIRATORY THERAPY CALLED FOR PRN C/O SHORNTESS OF BREATH. LUNGS CLEAR BILAT. O2 NC ON
--- NOTE | 2018-03-24 22:00 | NUR ---
P--CONFUSION AND NONCOMPLIANCE WITH OXYGEN TUBING I--TRIED TO REORIENT TO PLACE AND IMPORTANCE OF OXYGEN. EMOTIONAL SUPPORT PROVIDED. DISCUSS COPING SKILLS R---GET OUT OF HERE, I DON'T WANT IT (CONTINUES TO THROW NASAL CANNULA ON FLOOR) DID TAKE MEDICATION P--CONTINUE TO MONITOR FOR CHANGES. TEACH NEW COPING SKILLS DAILY. BE AVAILABLE IF CLIENT NEEDS TO VENT
[2018-03-25 06:17] LABS: HEMATOCRIT 41.6 % (37.0-47.0); HEMOGLOBIN 13.8 g/dl (12.0-16.0); MEAN CELL VOLUME 105.1 fl (81.0-99.0); MEAN CORPUSCULAR HGB 34.8 pg (27.0-31.0); MEAN CORPUSCULAR HGB CONC 33.2 g/dl (33.0-37.0); MEAN PLATELET VOLUME 9.9 fl (9.6-12.3); NUCLEATED RED BLOOD CELL 0.2 % (0.0-0.0); PLATELET COUNT AUTOMATED 322 10*3/uL (130-400); RED BLOOD COUNT 3.96 10*6/uL (4.10-5.10); RED CELL DISTRI WIDTH 14.5 % (0-14.5)
--- NOTE | 2018-03-25 06:40 | NUR ---
DID NOT SLEEP MUCH LAST NIGHT, INTERMITTENT CAT NAPS
[2018-03-25 06:49] LABS: ALBUMIN 3.1 gm/dl (3.1-4.5); CREATININE 1.45 mg/dL (0.55-1.02); THYROID STIM HORMONE (HS) 4.28 uIU/ml (0.358-4.75); TOTAL PROTEIN 7.3 gm/dL (6.4-8.2)
[2018-03-25 06:59] LABS: ATYPICAL LYMPHS 2 % (0-0); PLATELET SUFFICIENCY NORMAL (NORMAL); TOTAL CELLS COUNTED 100 #CELLS
[2018-03-25 07:20] LABS: VITAMIN D, 25-HYDROXY 30.8 ng/mL (30-100)
[2018-03-25 08:03] VITALS: BP 154/73
--- NOTE | 2018-03-25 08:15 | NUR ---
Treatment Plan meeting with Dr. Maharaj, RN, AT, SW and Employee Welfare Manager. Plan for discharge next week. Working with family to arrange for discharge Planning.
--- NOTE | 2018-03-25 09:07 | NUR ---
Nursing screen and Occupational Therapy referral received. Thank you. Elena Garcia OTR/l
--- NOTE | 2018-03-25 11:00 | NUR ---
RON RO CNP ON UNIT TO ASSESS PATIENT.
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
--- NOTE | 2018-03-25 12:36 | NUR ---
RON RO CNP NOTIFIED OF PATIENT'S BLOOD SUGAR BEFORE LUNCH WAS 56, 4 OZ OF OJ WITH 2 SUGAR PACKETS GIVE; PATIENT ATE PUDDING AND PEACHES AND BLOOD SUGAR RECHECKED AND CAME UP TO 107. VERBAL ORDER TO STOP GLUCOTROL.
--- NOTE | 2018-03-25 12:40 | NUR ---
Spoke with Patient Daughter Paula via telephone to discuss discharge Planning. Pt. daughter ultimately would like to take patient home with her to live in [place]. Advised Daughter that Tobacco Sweeper and Fighting Vehicle Systems Maintainer will get definate discharge date from Dr. Maharaj in the a.m. Notified Daughter that Medical Physician feels that patient would do better to transport via car than to fly to [place]. Will follow with Dr. Maharaj in A.M.
--- NOTE | 2018-03-25 13:12 | NUR ---
PATIENT COMPLAINING OF PAIN, ALL OVER RATING 7/10. PRN TYLENOL 650MG PO GIVEN AT THIS TIME. ENCOURAGED PATIENT TO KEEP OXYGEN ON. PATIENT SOB, RESPIRATIONS 24. LUNGS CLEAR. O2 SATURATION 98 ON 2 LITERS. RESPIRATORY THERAPY CALLED FOR BREATHING TREATMENT.
--- NOTE | 2018-03-25 14:12 | NUR ---
PATIENT ASSISTED TO BED, REPOSITIONED, NO LONGER COMPLAINING OF BACK PAIN. PATIENT COMPLAINED OF STOMACK PAIN. ASKED WHEN SHE MOVED HER BOWELS LAST, UNABLE TO RECALL. BOWEL SOUNDS ACTIVE IN ALL QUADRANTS. WILL CONTINUE TO MONITOR.
--- NOTE | 2018-03-25 14:27 | NUR ---
Call placed to [facility], , to start mental health inpatient precertification. Information given to Jessica. Jessica stated there are no care managers available at this time, someone will return the call. Awaiting return call.
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
--- NOTE | 2018-03-25 15:15 | NUR ---
Spoke to Kaila at [facility]. Patient is not meeting inpatient criteria. Kaila discussed with her staffing mineral wool insulation supervisor who agrees the patient is not meeting inpatient criteria. Case will now go to the medical planner for review. Awaiting return call.
--- NOTE | 2018-03-25 15:38 | NUR ---
Notified [facility] supply chain planner of patient not meeting inpatient criteria and care going to the medical research scientist.
--- NOTE | 2018-03-25 15:42 | NUR ---
PM GROUP/LEISURE INTERESTS PT DID NOT ATTEND AFTERNOON GROUP THERAPY, PT WAS REMOVED BY NICOLE FOR A FAMILY MEETING.
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
[2018-03-25 20:44] VITALS: BP 143/67
--- NOTE | 2018-03-26 03:19 | NUR ---
P-CONFUSED, ST/LT MEMORY DEFICITS I-ASSESS ORIENTATION, REORIENT AND REDIRECT. PROVIDE 1:1 FOR PATIENT TO VOICE THOUGHTS AND NEEDS. ENCOURAGE MEDICATION COMPLIANCE. R-PT ALERT AND ORIENTED TO PERSON AND APPROX PLACE, KNOWS SHE IS IN A "HOSPITAL". PT RECEPTIVE TO REORIENTATION WHEN PRESENTED FOR SHORT PERIODS. DURING 1:1 PATIENT VERBALIZED NO COMPLAINTS AND STATED SHE WAS "FINE". MEDICATION COMPLIANT WITHOUT DIFFICULTY, UNABLE TO EDUCATE DUE TO CONFUSION. PT CURRENTLY RESTING QUIETLY IN ROOM, RESPIRATIONS EASY AND REGULAR ON 2L NC. NO SIGNS OR SYMPTOMS OF DISTRESS NOTED. P- ASSESS ORIENTATION, REORIENT AND REDIRECT NEEDED. PROVIDE 1:1 FOR PATIENT TO VOICE FEELINGS. ENCOURAGE MEDICATION COMPLIANCE.
--- NOTE | 2018-03-26 03:32 | NUR ---
PATIENT'S BSG CHECKED A NURSING MEASURE WITH A RESULT OF 70. NO SIGNS OR SYMPTOMS OF HYPOGLYCEMIA NOTED. PATIENT PROVIDED WITH ADDITIONAL SNACK X2 PUDDINGS AND ORANGE JUICE.
--- NOTE | 2018-03-26 05:45 | NUR ---
24 HOUR CHART CHECK COMPLETED.
--- NOTE | 2018-03-26 05:47 | NUR ---
PATIENT OBSERVED ON Q 15 MIN CHECKS TO HAVE SLEPT APPROX 1 HOURS INTERRUPTED WITH MULTIPLE AWAKENINGS NOTED DURING STAFF CHECKS OF PATIENT TALKING TO UNSEEN OTHERS, UNABLE TO BE REDIRECTED/REORIENTED. PT MAINTAINED ON O2 2L NC, SPO2 96. RESPIRATIONS EASY AND REGULAR, NO SIGNS OR SYMPTOMS OF DISTRESS NOTED.
[2018-03-26 07:39] VITALS: BP 127/68
--- NOTE | 2018-03-26 08:08 | NUR ---
Level of Care for Retirement Transfer Submitted and Faxed to [facility].
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
--- NOTE | 2018-03-26 09:12 | NUR ---
Met with pt who appeared more alert and oriented and discussed pt desire to go to [place] and willingness to go to a nuring home first to build her strength. Obtained written consent as previously pt had given verbal consent but wasn't feeling well and was reclined in gerichair making signing more challenging. Reviewed the outcome of family meeting with pt. Pt smiled and seemed content and also self advocated saying she wanted fruit, later she expressed more wants/needs including wanting to lay down and staff was informed of pt request and was supportive to pt.
--- NOTE | 2018-03-26 12:16 | NUR ---
AM GROUP PT WAS PRESENT FOR MORNING GROUP THERAPY RECLINED AND SLEEPING IN A CAMDEN CHAIR. PT DID NOT AWAKEN FOR GROUP.
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
--- NOTE | 2018-03-26 13:15 | NUR ---
PHYSICAL THERAPY PAtient evaluated on 3, full evaluation to follow. Continue with PT as per plan of care with fall, kerrie prn, max(A) x 1-2 prn, alarm and unit three precautions. Recommmend SNF. PAtient is high complexity via chart review, tests and evaluation: 29950. Thank you for this referral. payton Mata,PT
--- NOTE | 2018-03-26 13:40 | NUR ---
Occupational Therapy evaluation completed on 3 with full eval to follow. Precautions include fall risk; personal alarm, bed alarm, +2 moderate assist for transfers, 3n unit precautions. Patient is high complexity level 96016 via chart review, testing and evaluation. Recommend OT per POC and SNF upon d/c to enable return home with elderly . Thank you for this referral. Elena Garcia OTR/L
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
--- NOTE | 2018-03-26 14:20 | NUR ---
HENS completed online. PASRR submitted successfully. Validation Complete. Referred to [facility] for Further Review . Faxed PASRR and Supporting information.
--- NOTE | 2018-03-26 14:55 | NUR ---
Shift chart check completed.
--- NOTE | 2018-03-26 15:05 | NUR ---
Consulted with Dr. Osman regarding pt and APS.
--- NOTE | 2018-03-26 15:17 | NUR ---
Nursing screen received and Occupational Therapy evaluation completed. Thank you. Elena Garcia OTR/l
--- NOTE | 2018-03-26 15:48 | NUR ---
PM GROUP/MUSIC AND FOCUS GROUP PT WAS PRESENT FOR AFTERNOON GROUP THERAPY RECLINED IN A CAMDEN CHAIR SLEEPING. PT AWOKE TO USE THE BATHROOM AND ONCE RETURNED, WENT BACK TO SLEEP. PT WOULD RESPOND TO VOICE COMMANDS AND SEEMED MILDLY CONFUSED TO TIME OF DAY. PT EXHIBITED NO AGITATION OR AGGRESSION DURING GROUP
--- NOTE | 2018-03-26 18:25 | NUR ---
PATIENT ALERT TO PERSON ONLY. ST/LT MEMORY DEFICITS NOTED. PATIENTS MOOD STABLE. PARTICIPATING IN GROUP. INTERACTING WITH PEERS AND STAFF. NO S/S OF INTERACTING WITH INTERNAL STIMULI. DENIES HALLUCINATIONS, DELUSIONS, SI/HI, OR PAIN. APPETITIE GOOD PER RECORDS. REORIENT PATIENT WITH CONFUSION. ASSISTANCE WITH EATING PROVIDED. Q15 MINUTE CHECKS MAINTAINED FOR SAFETY. FALLING STAR PROGRAM IN PLACE. OXYGEN INTACT. ASSIST WITH ADLS AND HYGIENE.
[2018-03-26 20:00] VITALS: BP 146/64
--- NOTE | 2018-03-27 01:36 | NUR ---
P-CONFUSED, ST/LT MEMORY DEFICITS. I-ASSESS ORIENTATION, REORIENT AND REDIRECT. PROVIDE 1:1 FOR PATIENT TO VOICE FEELINGS AND NEEDS. ENCOURAGE MEDICATION COMPLIANCE. R- PT PLEASANTLY CONFUSED, ALERT AND ORIENTED TO SELF. CONTINUES TO KNOW SHE IS IN A HOPSITAL BUT STATES THE YEAR IS "19". PT RECEPTIVE TO REORIENTATION WHEN PROVIDED. DURING 1:1 PATIENT STATED SHE "FEELS OK" BUT "IS READY FOR BED", NO PHYSICAL COMPLAINTS NOTED. MEDICATION COMPLIANT WITHOUT DIFFICULTY. NO HALLUCINATIONS OR DELUSIONS NOTED. P-ASSESS ORIENTATION, REORIENT AND REDIRECT NEEDED. PROVIDE 1:1 FOR PATIENT TO VOICE FEELINGS. ENCOURAGE MEDICATION COMPLIANCE.
--- NOTE | 2018-03-27 04:28 | NUR ---
Recommend follow up for wound care in outpatient setting patient being discharge to another facility at this time.
--- NOTE | 2018-03-27 06:09 | NUR ---
PATIENT OBSERVED ON Q 15 MIN CHECKS TO HAVE SLEPT APPROX 2 HOURS WITH MULTIPLE AWAKENINGS DURING STAFF CHECKS OF PATIENT TALKING TO SELF, CALLING OUT FOR "LORD GUTIERREZ" AND "ED". WHEN ASKED WHY SHE ISNT SLEEPING AT NIGHT BY THIS NURSE PATIENT STATED "I SLEEP DURING THE DAY" AND STATED SHE USED TO WORK NIGHTS. NO PHYSICAL COMPLAINTS NOTED. PATIENT CONTINUED ON 3L NC, RESPIRATIONS EASY AND REGULAR. NO SIGNS OR SYMPTOMS OF DISTRESS NOTED.
--- NOTE | 2018-03-27 06:55 | NUR ---
24 hour chart check completed.
[2018-03-27 07:44] VITALS: BP 148/70
--- NOTE | 2018-03-27 07:45 | NUR ---
PHYSICAL THERAPY Patient seen this am for therapy visit and was sitting up in activity room Lazara chair upon therapist arrival. OT acute care assistant was present for entire WIND ENERGY MECHANIC treatment this session as observation only and patient reporting no new c/o's at this time. Patient was tranported via Lazara chair to [facility] for transfer training, performing several sit to stand transfers at [facility]. Patient transfers Min/Mod A with use of B UE support and able to rock sideways, including several marching steps each trial. Patient fatigues quickly and needed seated rest break < 30 seconds each attempt and also ambulated 15'x 1, use of wh walker, CGA/Min, demonstrating decreased upright posture, decreased stride and c/o R shoulder pain. Patient required therapist assist to improve weight shift to promote increased stride and returned to activity room Lazara chair with body alarm, under [facility] staff Supervision. Will continue per POC as tolerated, total treatment time 16 minutes. Castro Lee, WIND ENERGY MECHANIC
--- NOTE | 2018-03-27 08:00 | NUR ---
OT NOTE Pt was seen this A.M. 1:1 for 30 minute OT session with SOFTWARE INTEGRATOR and nursing staff present for observation only. Upon arrival pt was sitting upright in alexi chair in dining room. Pt identified by name and and presented to therapy with continous 4L-O2 via NC which she remained on throughout entire session. Pt was taken out into the hallway where she completed multiple sit to stand transfers from chair level with modA and use of hand railing for UE support. Challenged pt's static standing tolerance needed for increased I in self care tasks and functional transfers and pt was able to tolerate aprox 65 seconds and then 25 seconds before sitting due to fatigue. Pt returned to dining room due to breakfast tray arriving and pt required set-upA of tray and was then able to complete self feeding with SBA. Pt required verbal prompts for encouragement throughout. She was then requesting to use the bathroom. Pt was taken into the bathroom where she completed sit to stand from felipe level with Milton X 2 and use of grab bar. Stand pivot completed to standard commode with Milton X 2, clothing management completed with maxA, and toilet hygiene completed with maxA. Pt then transferred off standard commode with modA X 2 and completed stand pivot to [facility] with Milton x 2. Pt was left sitting upright in [facility] felipe in dining room with body alarm on for safety and under [facility] staff supervision. Continue with rec D/C plan to SNF. RUBINA kAhtar/Sharon
--- NOTE | 2018-03-27 08:15 | NUR ---
Treatment Plan meeting with Dr. Maharaj RN, AT, SW and Filtration Operator. Plan for discharge Saturday. Working on Placement for patient at this time.
--- NOTE | 2018-03-27 10:52 | NUR ---
IP denied per Stefania at [facility]. 14 days for peer to peer. Message left for Stefania, , regarding setting up peer to peer. Awaiting return call.
--- NOTE | 2018-03-27 10:57 | NUR ---
DR. FAROOQ ON UNIT TO ASSESS PATIENT.
--- NOTE | 2018-03-27 12:03 | NUR ---
URINE SPECIMEN COLLECTED VIA STRAIGHT CATH, PATIENT TOLERATED PROCEDURE WELL. URINE CLOUDY LIGHT YELLOW NOTED AND SENT TO LAB.
[2018-03-27 12:23] LABS: BILIRUBIN NEGATIVE (NEGATIVE); BLOOD TRACE-INTACT (NEGATIVE); CLARITY CLOUDY (CLEAR); COLOR YELLOW (YELLOW); GLUCOSE NEGATIVE (NEGATIVE); KETONE NEGATIVE (NEGATIVE); LEUKO ESTERASE 1+ (NEGATIVE); NITRITE POSITIVE (NEGATIVE); PH 5.5 (5.0-9.0); UROBILINOGEN 0.2 E.U./dl (0.2-1.0)
[2018-03-27 12:33] LABS: BACTERIA 4+; WBC 31-40 wbc/hpf (0-5)
[2018-03-27 12:34] LABS: EPITHELIAL CELLS 15-20
--- NOTE | 2018-03-27 13:17 | NUR ---
AM GROUP/EXERCISE AND PARACHUTE PT DID NOT ATTEND MORNING GROUP THERAPY. PT DID NOT SLEEP LAST NIGHT PER NURSES REPORT AND WAS TAKEN TO BED.
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
--- NOTE | 2018-03-27 15:53 | NUR ---
PM GROUP/MEDITATION AND THE 5 SENSES PT DID NOT ATTEND AFTERNOON GROUP THERAPY. PT WAS IN BED NAPPING.
--- NOTE | 2018-03-27 17:57 | NUR ---
Shift chart check completed.
[2018-03-27 20:00] VITALS: BP 141/80
--- NOTE | 2018-03-27 22:27 | NUR ---
P-CONFUSION, POOR APETITE. PATIENT WITH SHORT TERM AND LONGTERM MEMORY DEFICITS. PATIENT WITH NO HALLUCINATIONS OR DELUSIONS. PATIENT WITH NO SUICIDAL OR HOMICIDAL IDEATIONS. PATIENT WITH POOR APPETITE. PATIENT PROVIDED HS SNACK AND ABLE TO FEED SELF WITH SET UP ASSISTANCE. I-REDIRECTION WITH 1:1 THERAPEUTIC INTERVENTION AND PRESENT REALTIY ORIENTATION, EDUCATE AND ENCOURAGE MEDICATION COMPLAINCE R-REDIRECTION WITH 1:1 THERAPEUTIC INTERVENTIONS EFFECTIVE FOR SHORT PERIODS OF TIME. PATIENT MEDICATION COMPLIANT WITH MEDICATIONS CRUSHED PER PATIENT. PATIENT IS A SHASHI LIFT FOR TRANSFERS WITH ASSIST X 2. PATIENT CONTINUES ON ANTIBIOTIC THERAPY WITH NO ADVERSE REACTION. FLUIDS PROVIDED. P-CONTINUE TO ENCOURAGE MEDICATION COMPLIANCE, CONTINUE TO PRESENT REALITY, ENCOURAGE GROUP THERAPY WHILE AWAKE
--- NOTE | 2018-03-28 06:07 | NUR ---
PATIENT SLEPT 6 HOURS OF INTERRUPTED SLEEP THROUGHOUT SHIFT. Q 15 MINUTE CHECKS MAINTAINED
--- NOTE | 2018-03-28 07:25 | NUR ---
PHYSICAL THERAPY Patient seen this am for therapy visit and was semi reclined in Lazara chair sitting near nurses station upon therapist arrival. Patient voices no new c/o's and was very alert / pleasant while carrying on a friendly conversation. OT emergency medicine physician assistant was present for observation only during SERVICE AND REPAIR SUPERVISOR visit this morning as patient performed several sit to stand transfers, Min/Mod A at rail. Patient also able to side step each direction 5'x 3, followed by gait training with use of wh walker, 30'x 1, Min A, demonstrating very slow ori, decreased stride and poor walker safety / navigation. Patient returned to activity room Lazara chair as breakfast arrived with body alarm and under [facility] staff Supervision. Will contiue per POC as tolerated, total treatment time 16 minutes. Castro Lee, SERVICE AND REPAIR SUPERVISOR
[2018-03-28 07:38] VITALS: BP 144/70
--- NOTE | 2018-03-28 07:45 | NUR ---
OT NOTE Pt was seen this A.M. 1:1 for 30 minute OT session with OPERATIONS ANALYST and nursing staff present for observation only. Upon arrival pt was sitting upright in alexi chair, pt identified by name and . Pt was taken out into the hallway where she completed multiple sit to stand transfers from chair level with Milton and use of hand railing for UE support for increased I in functional transfers. Challenged pt's static standing tolerance needed for increased I in self care tasks and functional transfers, pt was able to tolerate aprox 60 seconds and 150 seconds before sitting due to fatigue. Pt's breakfast tray arrived and pt required modA for set up of tray, cutting food, opening containers, and opening packages. Pt was then able to complete self feeding using utensils and cups with straws with supervision. Pt was left sitting upright in alexi chair in dining room with body alarm on for safety and under [facility] staff supervision. Continue with rec D/C plan to SNF. RUBINA Akhtar/Sharon
--- NOTE | 2018-03-28 08:00 | NUR ---
CHLOE bernal Pt. has been approved for Nursing Facility Services. Referral Faxed 03/27/18 to [facility] Will follow.
--- NOTE | 2018-03-28 08:15 | NUR ---
Treatment Plan meeting with Dr. Maharaj, RN, AT, SW and Fire Protection Inspector. Plan for discharge Saturday. Working on Placement for patient.
--- NOTE | 2018-03-28 08:38 | NUR ---
Referral faxed to [facility] Attn: Fatuma for Short term Stay Private Pay.
--- NOTE | 2018-03-28 09:05 | NUR ---
Referral faxed to [facility] Attn: Luda for Short Term Stay Private Pay.
--- NOTE | 2018-03-28 09:07 | NUR ---
PRN MIRALAX GIVEN PER PT REQUEST FOR C/O CONSTIPATION. ABD NONTENDER AND NONDISTENDED. WILL CONTINUE TO MONITOR FOR EFFECTIVENESS.
--- NOTE | 2018-03-28 10:00 | NUR ---
PRN MIRALAX HAS NOT BEEN EFFECTIVE AT THIS TIME. WILL CONTINUE TO MONITOR FOR EFFECTIVENESS.
--- NOTE | 2018-03-28 10:30 | NUR ---
NURSING STAFF ALERTED BY ACTIVITIES THERAPIST THAT DURING GROUP PT WAS ATTEMPTING TO STAND UNASSISTED SHE STATES SHE NEEDS TO USE THE BATHROOM. MILIEU STAFF ASSISTED PT TO BATHROOM, PT STATES "NOW YOU HAVE TO PUT ME TO BED". PT ABLE TO TRANSFER TO [facility] WITH STAFF ASSIST X1. PT DID NOT VOID AT THIS TIME AND AGAIN STATES "NOW PUT ME BACK TO BED". PT REDIRECTED AND RETURNED TO GROUP AT THIS TIME.
--- NOTE | 2018-03-28 11:53 | NUR ---
AM GROUP/THERAPY DOG PT WAS PRESENT FOR THE SESSION WITH THE THERAPY DOG BUT DID EXHIBIT SOME CONFUSION AND DELUSIONS. PT ASKED, "CAN YOU TAKE ME TO THE PARK?" AND ALSO THOUGHT THAT HER BLANKET WAS A ROBE AND WANTED HELP PUTTING IT ON. PT KEPT ATTEMPTING TO GET UP ON HER OWN AND STATING THAT SHE HAD TO USE THE RESTROOM AFTER SHE HAD JUST RETURNED FROM THE RESTROOM.
--- NOTE | 2018-03-28 12:36 | NUR ---
P-PT ALERT AND ORIENTED TO PERSON, PRESIDENT, AND YEAR OTHERWISE COFUSED WITH ST/LT MEMORY DEIFICTS. ATTEMPTS TO STAFF SPLIT MADE THIS SHIFT. PT HAS ALSO ACCUSATORY TOWARDS STAFF. REQUIRES MUCH ENCOURAGEMENT FROM STAFF TO COMPLETE SIMPLES TASKS, SUCH MOVE CUP FROM HAND TO MOUTH, INDEPENDENTLY. PT ALSO REQUIRES MUCH ENCOURAGEMENT TO NOT SELF ISOLATE IN ROOM AND SLEEP ALL DAY. I-PT HAS BEEN ENCOURAGED TO STAY AWAKE AND IN DAY ROOM MOST OF THE SHIFT. ASSESSED PT FOR INCREASED ANXIETY, DEPRESSION, AND SI/HI. ENCOURAGED GROUPS. R-PT REMAINS LIMITED IN HER INTERATIONS WITH PEERS. MEDICATION COMPLIANT WITHOUT DIFFICULTY. STATES SHE IS MILDLY DEPRESSED BECUASE SHE HAS EXPERIENCED MANY THINGS IN HER LIFE BUT REFUSED TO ELABORATE. P-CONTINUE TO ENCOURAGE GROUP ATTENDENCE AND PARTICIPATION. ENCOURAGE ADLS TO BE COMPLETED INDEPENDENTLY TO THE BEST OF PTS ABILITIES. ENCOURAGE INTERACTIONS WITH PEERS. CONTINUE CURRENT TX PLAN. Q15 MIN CHECKS PER OBSERVATION ORDERS.
--- NOTE | 2018-03-28 13:26 | NUR ---
Shirin Park from [facility] calls. She said they would be willing to accept patient short term and balance up front which would need paid out of pocket by family in the amount of $5760.00 prior to admit to [facility]. Will follow. No return calls at this time have been received from [facility]
--- NOTE | 2018-03-28 13:58 | NUR ---
UPDATES GIVEN TO ANI AND OTHER DTR THIS SHIFT.
--- NOTE | 2018-03-28 14:09 | NUR ---
ACTIVITY THERAPIST ALERTED TO THIS RN THAT PT VOICED C/O CHEST PAIN. PT REMOVED FROM GROUP AND PLAYING BINGO. COMPLETE ASSESSMENT FORMED. PT C/O MIDSTERNAL CHEST PAIN AND TIGHTNESS ACCROSS WHOLE CHEST. DENIES ANY SOB OR RADIATING PAIN TO ARM OR JAW. VITALS TAKEN AND STABLE FOLLOWS: 97.8,64,18,133/70,95% RA. ONE ON ONE COMPELTED FOR LESS THAN 2 MINUTES DUE TO INCREASED ANXIETY. PT CONTINUES TO VOICE C/O CP. NOTIFIED AND STATES WILL ENTER NEW ORDERS.
--- NOTE | 2018-03-28 14:31 | NUR ---
PT TOILETED PER REQUEST. REQUIRED MIN-MOD 2 ASSIST WITH QUEING AND PROMPTING. PT ASSISTED BACK TO CHAIR IN IN QUIET ROOM WITH O2 APPLIED. PT STATES SHE IS STARTING TO FEEL BETTER.
--- NOTE | 2018-03-28 14:46 | NUR ---
Met with Ed SrDiego and pt and obtained consent as pt was deemed incompetent and we just received the POA ppwk. Called Rubens Keen who said he called and left several messages with Sheila about finalizing the financial portion of pt discharging to a facility. Returned call to Elo-moody sister in law and provided an update and answered questions. Left several VM for Sheila and then called the area secretary who put this telegraphic typewriter installer in touch with Chasity at [facility] said she would find Sheila and have her call the son- Rubensjh Keen regarding financials. Chasity called this telegraphic typewriter installer and confirmed that Sheila was able to reach son. Logan Keen called and said said he got ahold of Sheila and they went over all the details and decided to place pt in a private room at [facility]. This telegraphic typewriter installer confirmed pts Medicare card in her belongings here at [facility]. Ed said he Made check out and mailed it to Sheila so it seems all worked out. Collaborated with train planner on the plan and she will work on transportation via ambulance for Saturday. Notified [facility] of discharge plan and left VM that reportedly came in today to visit and forgot that he was here yesterday to visit.
--- NOTE | 2018-03-28 15:37 | NUR ---
Spoke with Eva at the [facility]. Pt. is accepted and will transfer to [facility] on Saturday.
--- NOTE | 2018-03-28 15:38 | NUR ---
BINGO! PT ATTENDED AND PARTICIPATED IN BINGO. PT EXHIBITED NO AGITATION OR CONFUSION DURING GROUP.
--- NOTE | 2018-03-28 15:56 | NUR ---
Notified Shirin Park at [facility] that pt. accepted at [facility], Also notified Fautma at [facility]
[2018-03-28 20:00] VITALS: BP 141/58
--- NOTE | 2018-03-28 23:15 | NUR ---
PATIENT ALERT AND ORIENTED TO PERSON AND PLACE. PATIENT WITH SHORT TERM AND SNF MEMORY DEFICITS. PATIENT WITH NO RESPIRTORY DISTRESS. PATIENT ON 2L O2 VIA NASAL CANNULA AND TOLERATING WITHOUT DIFFICULTY. PATIENT CONTINUES ON ANTIBIOTIC THERAPY FOR +UTI. NO ADVERSE REACTION NOTED. PATIENT WITH NO HALLUCINATIONS OR DELUSIONS. PATIENT WITH NO SUICIDAL OR HOMICIDAL IDEATIONS. PATIENT TRANSFERRED TO TOILET AND TO BED WITH ASSIST X 2. MEDICATION COMPLIANT. PATIENT TOOK MEDICATIONS WHOLE WITHOUT DIFFICULTY. PATIENT PROVIDED NOURISHMENT, FLUIDS, AND TOILETING AT HS. PATIENT SHOWERED AT HS.
--- NOTE | 2018-03-29 01:49 | NUR ---
24 HR chart check completed.
--- NOTE | 2018-03-29 06:20 | NUR ---
DR CANSECO UPDATED ABOUT URINE CULTURE. DR CANSECO UPDATED ABOUT PATIENT ON ANTIBIOTIC AT THIS TIME. NO NEW ORDERS AT THIS TIME
--- NOTE | 2018-03-29 06:32 | NUR ---
PATIENT SLEPT 7-8 HOURS INTERRUPTED SLEEP THROUGHOUT SHIFT. Q 15 MINUTE CHECKS MAINTAINED
[2018-03-29 07:36] VITALS: BP 138/68
--- NOTE | 2018-03-29 11:07 | NUR ---
FULL UPDATE GIVEN TO DTR AT THIS TIME. ALL QUESTIONS ANWSERED.
--- NOTE | 2018-03-29 12:02 | NUR ---
AM GROUP/EXERCISE/MUSIC/ART PT ATTENDED BUT UNABLE TO PARTICIPATE DUE TO LEVELS OF CONFUSION. PT DID NOT BECOME AGITATED AT THIS TIME. PT RECLINED IN CHAIR LISTENING TO GROUP. PT WILL CONTINUE TO ATTEND AND BE ENCOURAGED TO PARTICIPATE TO BEST OF PT ABILITY.
--- NOTE | 2018-03-29 12:30 | NUR ---
IN FOR VISIT AT THIS TIME.
--- NOTE | 2018-03-29 15:07 | NUR ---
P- EXTENSIVE SHORT TERM RADIOLOGIC TECHNICIAN MEMORY DEFICITS NOTED DURIMNG 1:1 INTERACTIONS. PT ALERT AND ORIENATED TO PERSON AND PLACE, OTHERWISE CONFUSED. LESS ATTENTION SEEKING BEHAVIORS AND STAFF SPLITTING NOTED THIS SHIFT. I- FREQUENNT ORIENATATION THROUGH THE SHIFT REDIRECTION NEEDED. R- PT REMAINS PLESANTLY CONFUSED. UNABLE TO OBTAIN ORIENTATION FOR LONG PERIODS OF TIME DUE TO COGNITION. P- ENCOURAGE GROUPS, ALL NEEDS AND ONES ANTICIAPTED BY STAFF.
--- NOTE | 2018-03-29 16:22 | NUR ---
WOUND CARE TX COMPLETED THIS SHIFT. PT TOLERATED WELL.
--- NOTE | 2018-03-29 16:23 | NUR ---
Shift chart check completed.
--- NOTE | 2018-03-29 17:46 | NUR ---
IN FOR VISIT THIS EVENING.
[2018-03-29 19:50] VITALS: BP 138/69
--- NOTE | 2018-03-29 23:45 | NUR ---
P-CONFUSION. PATIENT WITH SHORT TERM AND PRAWN TRAWLER HAND MEMORY DEFICITS. PATIENT WITH NO HALLUCINATIONS OR DELUSIONS. PATIENT WITH NO SUICIDAL OR HOMICIDAL IDEATIONS. NO RESPIRATORY DISTRESS NOTED. PATIENT REQUEST FOR OXYGEN TO BE PUT ON WHILE IN BE. PATIENT TOLERATING 2L 02 VIA NASAL CANNULA WITHOUT DIFFICULTY I-REDIRECTION WITH 1:1 THERAPEUTC INTERVENTIONS AND PRESENT REALITY ORIENTATION, EDUCATE AND ENCOURAGE MEDICATION COMPLIANCE R-REDIRECTION WITH 1:1 THERAPEUTIC INTERVENTIONS ARE EFFECTIVE FOR SHORT PERIODS OF TIME DUE TO PATIENT COGNITION. PATIENT MEDICATION COMPLIANT AT THIS TIME. PATIENT TRANSFERRED TO BED WITH ASSIST X 2. PATIENT PROVIDED NOURISHMENT, FLUIDS, AND TOILETING AT HS. P-CONTINUE TO ENCOURAGE MEDICATION COMPLAINCE, CONTNUE TO PRESENT REALITY, ENCOURAGE GROUP THERAPY WHILE AWAKE
--- NOTE | 2018-03-30 00:23 | NUR ---
24 HR chart check completed.
--- NOTE | 2018-03-30 06:04 | NUR ---
PATIENT SLEPT 8 HOURS UNINTERRUPTED THROUGHOUT SHIFT. Q 15 MINUTE CHECKS MAINTAINED
[2018-03-30 07:26] VITALS: BP 150/74
--- NOTE | 2018-03-30 16:34 | NUR ---
PM GROUP/LEISURE SKILLS PT ATTENDED AND PARTICIPATED TO BEST OF ABILITY. PT USED MARKERS TO COLOR A FLOWER LITTLE BY LITTLE. PT STATES "I NEED TO TAKE BREAKS BECAUSE MY HANDS START TO HURT". PT PLEASANT THROUGHOUT GROUP. PT WILL CONTINUE TO BE ENCOURAGED TO ATTEND AND PARTICIPATE TO BEST OF ABILITY.
[2018-03-30 19:56] VITALS: BP 134/72
--- NOTE | 2018-03-30 23:40 | NUR ---
PATIENT ALERT WITH CONFUSION. PATIENT WITH SHORT TERM AND OCULAR PATHOLOGIST MEMORY DEFICITS. PATIENT WITH RESPIRATORY DISTRESS. PATIENT NOT REQUESTING TO WEAR OXYGEN AT HS. PATIENT MEDICATION COMPLIANT. PATIENT WITH NO HALLUCINATIONS OR DELUSIONS. PATIENT WITH NO SUICIDAL OR HOMICIDAL IDEATIONS. NOURISHMENT, FLUIDS, AND TOILETING PROVIDED. PATIENT CALM AND PURPOSEFUL. PATIENT INTERACTING WITH NURSING STAFF INTERMITTENTLY. PATIENT MOOD IS STABLE AT THIS TIME. SEE [facility] FLOW SHEET FOR SPECIFIC MONITORING
--- NOTE | 2018-03-31 00:36 | NUR ---
24 HR chart check completed.
[2018-03-31 07:16] VITALS: BP 156/90
--- NOTE | 2018-03-31 08:00 | NUR ---
OT NOTE Pt was seen this A.M. 1:1 for 15 minute OT session with nursing staff present for observation only. Upon arrival pt was sitting reclined in alexi chair in dining room. Pt identified by name and and had no complaints at this time. Pt was put in upright sitting position at the table for enhanced safety and increased I in self feeding. Pt's breakfast tray arrived which she required maxA for set-up of tray. Pt was then able to complete self feeding with supervision while managing utensils and cups with straws. Pt was left sitting upright at dining room table eating her breakfast under [facility] staff supervision. Continue with rec D/C plan to SNF. RUBINA Akhtar/Sharon
--- NOTE | 2018-03-31 08:00 | NUR ---
TREATMENT PLAN MEETING WITH DR. STEINBERG, RN, AT, SW AND WASH PLANT OPERATOR. PLAN FOR DISCHARGE TODAY. PT. IS DISCHARGED TO [facility] FOR SHORT TERM STAY PRIVATE PAY. TRANSPORTATION ARRANGED WITH [facility] WITH TESTER VIBRATOR EQUIPMENT TIME 12:30 P.M.
[2018-03-31] MEDS ORDERED: EXELON13.3 MG/21 T (09:08)
[2018-03-31] MEDS ORDERED: DULOXETINE HCL60 MG PO (09:08)
[2018-03-31] MEDS ORDERED: NAMENDA-5 PO (09:08)
--- NOTE | 2018-03-31 09:44 | NUR ---
SPOKE WITH RE:PT DISCHARGE AND MEDICAL MEDS NEEDING COMPLETED. NO FURTHER ORDERS A THIS TIME.
--- NOTE | 2018-03-31 10:30 | NUR ---
SPOKE WITH UPDATED ON D/C TIME OF 1200.
--- NOTE | 2018-03-31 11:54 | NUR ---
AM GROUP/PARACHUTE/FOCUS PT ATTENDED BUT UNABLE TO PARTICIPATE DUE TO LEVELS OF CONFUSION. PT OBSERVED GROUP AND REMAINED PLEASANT. PT WILL PLAN FOR DISCHARGE FROM [facility] TODAY.
--- NOTE | 2018-03-31 11:59 | NUR ---
PT ALERT TO PERSON, KNOWS SHE IS IN THE HOSPITAL BUT THINKS SHE IS IN [place] AND THE YEAR IS 1978. PT CALM, MOOD IS STABLE. PT PLEASANT AND COOPERATIVE WITH STAFF AND PEERS. NO HALLUCINATIONS OR DELUSIONS NOTED. PT DENIES ANY SUICIDAL/HOMICIDAL THOUGHTS. PT UP TO [facility], REQUIRES 2 ASSIST FOR TRANSFERS. PT INCONTINENT OF BOWEL AND BLADDER, CARE PROVIDED NEEDED. PLAN IS TO D/C PT TO [facility] TODAY.
--- NOTE | 2018-03-31 12:06 | NUR ---
NURSE TO NURSE REPORT GIVEN PETEY AT [facility].
--- NOTE | 2018-03-31 12:41 | NUR ---
PT DISCAHRGED TO [facility]IA [facility], BELONGINGS AND D/C PACKET SENT WITH PT.
--- NOTE | 2018-03-31 15:50 | NUR ---
PHYSICAL THERAPY CO-SIGN I approve of the Phyical Therapy notes written above. NATALYA LUNA PT
--- NOTE | 2018-03-31 16:12 | NUR ---
OCCUPATIONAL THERAPY CO-SIGN I approve of the Occupational Therapy notes written above. MELINA LOZA OTR/Sharon
--- NOTE | 2018-04-10 15:40 | NUR ---
Stefania from [facility] called. Peer to peer not completed. Insurance physician tried [address] Maharaj with no success. Discharge clinicals given.
== END 2018-03-31 12:43 | disposition home or self-care (01) | DRG 885 ==
LOC: 3N 09:29
PROVIDERS: Registered Nurse; ADMIT Psychiatry & Neurology Psychiatry
DX: F33.2 Major depressive disorder, recurrent severe without psychotic features (principal); E44.0 Moderate protein-calorie malnutrition; N39.0 Urinary tract infection, site not specified; I48.91 Unspecified atrial fibrillation; R45.1 Restlessness and agitation; M79.7 Fibromyalgia; E78.1 Pure hyperglyceridemia; M19.90 Unspecified osteoarthritis, unspecified site; I12.9 Hypertensive chronic kidney disease with stage 1 through stage 4 chronic kidney disease, or unspecified chronic kidney disease; N18.3 Chronic kidney disease, stage 3 (moderate); E66.9 Obesity, unspecified; G30.9 Alzheimer's disease, unspecified; F02.80 Dementia in other diseases classified elsewhere, unspecified severity, without behavioral disturbance, psychotic disturbance, mood disturbance, and anxiety; E78.5 Hyperlipidemia, unspecified; G47.33 Obstructive sleep apnea (adult) (pediatric); R41.9 Unspecified symptoms and signs involving cognitive functions and awareness; J45.909 Unspecified asthma, uncomplicated; E11.9 Type 2 diabetes mellitus without complications; M81.0 Age-related osteoporosis without current pathological fracture; Z90.710 Acquired absence of both cervix and uterus; Z79.899 Other long term (current) drug therapy; Z79.82 Long term (current) use of aspirin; Z68.28 Body mass index [BMI] 28.0-28.9, adult